=== PATIENT | female | born 1970 | race African-American/Black ===

== ENCOUNTER 2018-05-16 13:03 | Emergency (ER) | payer MEDICAID ==
--- NOTE | 2018-05-16 13:22 | ED Physician Documentation ---
PD HPI URI - Stated complaint Stated Complaint: BODYACHE/THROAT PX - Chief complaint Chief Complaint: Heent - History obtained from History obtained from: Patient - History of Present Illness Timing - onset: How many days ago (2) Timing details: Gradual onset Severity Comments: moderate Associated symptoms: Fever, Chills, Nasal congestion, Rhinorrhea, Sore throat, Dry cough Contributing factors: No: Travel, Immunocompromised Improves by: Nothing Worsened by: No: Activity, Breathing, Position Similar symptoms before: No diagnosis PD PAST MEDICAL HISTORY - Present Medications Home Medications: Ambulatory Orders Medication Instructions Recorded Confirmed Benzonatate [Tessalon Perle] 100 - 200 mg PO TID PRN #30 capsule 05/16/18 Naproxen 500 mg PO BID PRN #60 tablet 05/16/18 - Allergies Allergies/Adverse Reactions: Allergies Allergy/AdvReac Type Severity Reaction Status Date / Time No Known Drug Allergies Allergy Verified 05/16/18 13:12 PD ED PE NORMAL - General General: Alert and oriented X 3, No acute distress - HEENT HEENT: Atraumatic, PERRL, EOMI, Ears normal - Neck Neck: Supple, no meningeal sign - Cardiac Cardiac: RRR, Strong equal pulses - Respiratory Respiratory: No respiratory distress, Clear bilaterally - Derm Derm: Normal color - Extremities Extremities: No deformity - Neuro Neuro: Alert and oriented X 3, Normal speech - Psych Psych: Normal affect Results - Vitals Vitals: Vital Signs - 24 hr 05/16/18 13:10 Temperature 36.7 C Heart Rate 101 H Respiratory 16 Rate Blood Pressure 154/123 H O2 Saturation 100 Oxygen O2 Source Room air - Labs Labs: Laboratory Tests 05/16/18 13:30 Influenza A (Rapid) Negative Influenza B (Rapid) Negative PD MEDICAL DECISION MAKING - ED course ED course: The patient's workup does not reveal evidence of influenza and the patient's symptoms are consistent with a viral etiology. Clinically the patient has no wheezing on examination or findings to suggest pneumonia, acute otitis media or strep pharyngitis. Presently the patient appears appropriate for discharge and ongoing outpatient management. I discussed with the patient warning signs and recommended returning to the emergency department immediately for any worsening or any concerns Departure - Departure Disposition: 01 Home, Self Care Clinical Impression: Viral URI with cough Condition: Good Instructions: ED URI Viral Prescriptions: Benzonatate [Tessalon Perle] 100 - 200 mg PO TID PRN #30 capsule PRN Reason: Cough Naproxen 500 mg PO BID PRN #60 tablet PRN Reason: Pain Comments: Please follow-up with primary care Please return to the emergency department for worsening symptoms or any concerns
[2018-05-16] MEDS ORDERED: BENZONATATE 100 MG CAPSULE PO STA (14:04)
[2018-05-16] MEDS ORDERED: NAPROXEN 250 MG TABLET PO STA (14:04)
[2018-05-16 14:21] VITALS: BP 152/98
== END 2018-05-16 14:22 | disposition home or self-care (01) ==
LOC: ED 13:03
DX: J06.9 Acute upper respiratory infection, unspecified (principal)
CPT/HCPCS: 87275; 87276; 99283; A9270

== ENCOUNTER 2018-05-23 08:41 | Outpatient (CLI) | payer MEDICAID ==
[2018-05-23 14:28] LABS: BASOPHILS % (AUTO) 0.6 %; EOSINOPHILS # (AUTO) 0.2 10^3/uL (0.0-0.7); HGB - HEMOGLOBIN 9.5 g/dL (12.0-16.0); LYMPHOCYTES # (AUTO) 4.5 10^3/uL (1.5-3.5); LYMPHOCYTES % (AUTO) 59.1 %; MEAN CORPUSCULAR HEMOGLOBIN 21.4 pg (27.0-31.0); MEAN CORPUSCULAR HGB CONC 31.4 g/dL (32.0-36.0); MEAN CORPUSCULAR VOLUME 67.9 fL (81.0-99.0); MEAN PLATELET VOLUME 8.7 fL (7.9-10.8); MONOCYTES # (AUTO) 0.5 10^3/uL (0.0-1.0); MONOCYTES % (AUTO) 5.9 %; NEUTROPHILS # (AUTO) 2.5 10^3/uL (1.5-6.6); NEUTROPHILS % (AUTO) 32.4 %; PLT - PLATELET COUNT 283 10^3/uL (130-450); RED BLOOD COUNT 4.44 10^6/uL (4.20-5.40); RED CELL DISTRIBUTION WIDTH 23.3 % (12.0-15.0); WHITE BLOOD COUNT 7.7 x10^3/uL (4.8-10.8)
[2018-05-23 15:52] LABS: ALBUMIN 4.4 g/dL (3.2-5.5); ALBUMIN/GLOBULIN RATIO 1.3 (1.0-2.2); ALKALINE PHOSPHATASE 53 IU/L (42-121); ALT ALANINE AMINOTRANSFERASE 12 IU/L (10-60); AST ASPARTATE AMINOTRANSFERASE 17 IU/L (10-42); BILIRUBIN,TOTAL 0.2 mg/dL (0.2-1.0); BUN - BLOOD UREA NITROGEN 15 mg/dL (6-20); CALCIUM 9.2 mg/dL (8.5-10.3); CARBON DIOXIDE - CO2 24 mmol/L (21-32); CHLORIDE 105 mmol/L (101-111); CHOL/HDL RATIO 5.5 (<4.4); CHOLESTEROL 204 mg/dL; CREATININE 0.6 mg/dL (0.4-1.0); GFR - MDRD 131 (>89); GLUCOSE 82 mg/dL (70-100); HDL CHOLESTEROL 37 mg/dL; LDL CHOLESTEROL,CALCULATED 130 mg/dL; LDL/HDL RATIO 3.5 (<4.4); SODIUM 137 mmol/L (135-145); TOTAL PROTEIN 7.9 g/dL (6.7-8.2); VLDL CHOLESTEROL 37 mg/dL
[2018-05-23 16:03] LABS: DIFFERENTIAL COMMENT MANUAL=AUTO DIFF
[2018-05-23 20:20] LABS: HB2 TOTAL 9.8 g/dL; HEMOGLOBIN A1C 0.37 g/dL; HEMOGLOBIN A1C % 5.6 % (4.6-6.2)
[2018-05-24 13:07] LABS: HEPATITIS B SURFACE ANTIGEN NON-REACTIVE (NON-REACTIVE); HEPATITIS C ANTIBODY NON-REACTIVE (NON-REACTIVE)
[2018-05-24 13:37] LABS: HIV AG/AB 4TH GEN NON-REACTIVE (NON-REACTIVE)
== END 2018-05-23 23:59 | disposition home or self-care (01) ==
LOC: LAB.N 08:41
PROVIDERS: ATTEND Registered Nurse
DX: Z00.00 Encounter for general adult medical examination without abnormal findings (principal); I10 Essential (primary) hypertension; Z91.89 Other specified personal risk factors, not elsewhere classified
CPT/HCPCS: 36415; 80053; 80061; 81599; 83036; 83721; 84443; 85025; 86695; 86696; 86803; 87340; 87389

== ENCOUNTER 2018-05-28 08:00 | Outpatient (CLI) | payer MEDICAID | END 2018-05-28 23:59 | disposition home or self-care (01) | LOC: LAB.R 08:00 | PROVIDERS: ATTEND Registered Nurse | DX: Z00.00 Encounter for general adult medical examination without abnormal findings (principal); I10 Essential (primary) hypertension | CPT/HCPCS: 82570; 84156 ==

== ENCOUNTER 2018-06-23 15:35 | Emergency (ER) | payer MEDICAID ==
--- NOTE | 2018-06-23 15:47 | ED Physician Documentation ---
PD HPI SKIN - Stated complaint Stated Complaint: BREAST PX - Chief complaint Chief Complaint: General - History obtained from History obtained from: Patient - History of Present Illness Timing - onset: How many days ago (4) Timing - duration: Days (4) Timing - details: Gradual onset Location: Other (right medial breast) Quality / character: Painful, Discolored (some redness), Swelling (she feels a firm lump in the area) Associated symptoms: No: Fever, Myalgias, N/V/D Contributing factors: Other (She had been carrying heavy boxes at work few days prior to the onset, holding them against her breast, but did not notice direct impact injury.) Review of Systems Constitutional: denies: Fever, Chills, Myalgias GI: denies: Nausea, Vomiting Skin: denies: Rash, Lesions PD PAST MEDICAL HISTORY - Past Medical History Cardiovascular: None Respiratory: None Neuro: None Endocrine/Autoimmune: None GI: None 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 HEENT: None Psych: None Musculoskeletal: None Derm: None - Past Surgical History Past Surgical History: No - Present Medications Home Medications: Ambulatory Orders Medication Instructions Recorded Confirmed Benzonatate [Tessalon Perle] 100 - 200 mg PO TID PRN #30 capsule 05/16/18 Naproxen 500 mg PO BID PRN #60 tablet 05/16/18 Doxycycline Hyclate 100 mg PO BID #20 capsule 06/23/18 Naproxen 375 mg PO BID #20 tablet 06/23/18 - Allergies Allergies/Adverse Reactions: Allergies Allergy/AdvReac Type Severity Reaction Status Date / Time No Known Drug Allergies Allergy Verified 06/23/18 15:41 - Social History Does the pt smoke?: Yes Smoking Status: Current every day smoker Does the pt drink ETOH?: Yes Does the pt have substance abuse?: Yes - Immunizations Immunizations are current?: Yes - POLST Patient has POLST: No PD ED PE NORMAL - Vitals Vital signs reviewed: Yes - General General: Alert and oriented X 3, No acute distress, Well developed/nourished - Respiratory Respiratory: Other (right breast with firmness, tenderness and mild redness at 3 o'clock position to the nipple. No fluctuance felt. Bedside U/S showed mainly inflammation of the tissue, with small fluid collection about 3-4 mm just medial to the nipple. No sores nor discharge. ) Results - Vitals Vitals: Vital Signs - 24 hr 06/23/18 15:38 Temperature 37.3 C Heart Rate 83 Respiratory 18 Rate Blood Pressure 142/79 H O2 Saturation 100 Oxygen O2 Source Room air PD MEDICAL DECISION MAKING - ED course Complexity details: considered differential (bedside U/S showed mostly inflammation within glandular tissue, with a small fluid collection 3 o'clock to the nipple that was only about 3-4 mm size. It did not look big enough to need draining. ), d/w patient Departure - Departure Disposition: Home, Self Care Clinical Impression: Mastitis Condition: Stable Record reviewed to determine appropriate education?: Yes Instructions: ED Breast Infec Prescriptions: Doxycycline Hyclate 100 mg PO BID #20 capsule Naproxen 375 mg PO BID #20 tablet Comments: This sounds like in the infection of the glandular tissue of the breast. There is mostly inflammation on the ultrasound with a very small collection of fluid that does not look big enough to need draining at this time. We will start some antibiotics and anti-inflammatories. Also do some warm towels to the area periodically to improve blood flow to the area. Recheck if not improving over the next 2-3 days and return if significantly worsening over that time. After the tenderness and most swelling is down, there may still be somewhat of a lump feeling for another 2 or 3 weeks before it softens. Recheck if it does not fully resolve over several weeks. Forms: Activity restrictions
[2018-06-23] MEDS ORDERED: DOXYCYCLINE 100 MG TABLET PO STA (16:08)
[2018-06-23] MEDS ORDERED: IBUPROFEN 600 MG TABLET PO STA (16:08)
[2018-06-23 16:30] VITALS: BP 138/95
== END 2018-06-23 16:27 | disposition home or self-care (01) ==
LOC: ED 15:35
DX: N61.0 Mastitis without abscess (principal); F17.200 Nicotine dependence, unspecified, uncomplicated
CPT/HCPCS: 99283; A9270

== ENCOUNTER 2018-06-26 20:34 | Emergency (ER) | payer MEDICAID ==
--- NOTE | 2018-06-26 20:44 | ED Physician Documentation ---
PD HPI SKIN - Stated complaint Stated Complaint: RT BREAST PAIN - History obtained from History obtained from: Patient - History of Present Illness Timing - onset: How many weeks ago (1) Timing - duration: Weeks (1) Timing - details: Gradual onset, Still present, Constant Pain level now: 9 Location: Chest (right breast) Quality / character: Painful, Raised, Swelling Associated symptoms: No: Fever Recently seen: Emergency Dept - Additional information Additional information: T+R 3 days ago for right breast abscess, has been taking doxycycline as prescribed but returns due to steadily worsening symptoms (increasing pain, swelling). Symptoms started 1 week ago. 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 HEENT: None Psych: None Musculoskeletal: None Derm: None - Past Surgical History Past Surgical History: No - Present Medications Home Medications: Ambulatory Orders Medication Instructions Recorded Confirmed Benzonatate [Tessalon Perle] 100 - 200 mg PO TID PRN #30 capsule 05/16/18 Naproxen 500 mg PO BID PRN #60 tablet 05/16/18 Doxycycline Hyclate 100 mg PO BID #20 capsule 06/23/18 Naproxen 375 mg PO BID #20 tablet 06/23/18 Hydrocodone/Acetaminophen 1 - 2 each PO Q6H PRN #14 tablet 06/26/18 [Hydrocodon-Acetaminophen 5-325] Metronidazole [Flagyl] 500 mg PO TID #29 tablet 06/26/18 - Allergies Allergies/Adverse Reactions: Allergies Allergy/AdvReac Type Severity Reaction Status Date / Time No Known Drug Allergies Allergy Verified 06/26/18 20:47 - Social History Does the pt smoke?: Yes Smoking Status: Current every day smoker Does the pt drink ETOH?: Yes Does the pt have substance abuse?: Yes - Immunizations Immunizations are current?: Yes - POLST Patient has POLST: No PD ED PE NORMAL - Vitals Vital signs reviewed: Yes - General General: Alert and oriented X 3, No acute distress, Well developed/nourished PD ED PE EXPANDED - Derm Derm: Abscess (2.5 cm diameter abscess immediately adjacent to right nipple (medial to the nipple); the lesion is exquisitely tender, raised, erythematous with sharp margins and fluctuance. no nipple discharge) Results - Vitals Vitals: Vital Signs - 24 hr 06/26/18 06/26/18 20:44 22:04 Temperature 36.8 C 36.5 C Heart Rate 71 70 Respiratory 16 14 Rate Blood Pressure 165/58 H 146/99 H O2 Saturation 100 100 Oxygen O2 Source Room air Procedures - Abscess I&D (location) Breast right Preparation: Chlorhexadine, Lidocaine 1% (buffered) Incision: Incised with scalpel, Purulent drainage, Irrigated, Packed, Culture obtained Other: Pt tolerated well, Dressing applied, Antibiotic prescribed PD MEDICAL DECISION MAKING - ED course Complexity details: reviewed old records, considered differential, d/w patient ED course: Case d/w Dr. Perlita Bowling, agrees with I+D in ED, antibiotics to include anaerobic coverage, can f/u outpatient setting Departure - Departure Disposition: 01 Home, Self Care Clinical Impression: Mastitis Condition: Good Instructions: ED Breast Infec Follow-Up: Steve Bowling MD [Provider Admit Priv/Credential] - (Call in the morning to arrange for a follow-up appointment within the next 3-5 days) Prescriptions: Hydrocodone/Acetaminophen [Hydrocodon-Acetaminophen 5-325] 1 - 2 each PO Q6H PRN #14 tablet PRN Reason: pain Metronidazole [Flagyl] 500 mg PO TID #29 tablet Comments: Continue the antibiotic you are already on (doxycycline) but start also taking the metronidazole (prescribed tonight). Forms: Activity restrictions
[2018-06-26] MEDS ORDERED: BUFFERED LIDOCAINE 10 ML SYRINGE SUBQ STA (21:04)
[2018-06-26] MEDS ORDERED: HYDROcod/ACET 5/325 Prepack 4 PO STA (21:49)
[2018-06-26] MEDS ORDERED: metroNIDAZOLE 250 MG TABLET PO STA (21:49)
[2018-06-26 22:05] VITALS: BP 146/99
== END 2018-06-26 22:10 | disposition home or self-care (01) ==
LOC: ED 20:34
DX: N61.0 Mastitis without abscess (principal); F17.200 Nicotine dependence, unspecified, uncomplicated
CPT/HCPCS: 10060; 87070; 87205; 99283; A9270

== ENCOUNTER 2019-03-07 12:34 | Outpatient (CLI) | payer MEDICAID ==
[2019-03-07 19:16] LABS: BASOPHILS # (AUTO) 0.1 10^3/uL (0.0-0.1); BASOPHILS % (AUTO) 0.7 %; EOSINOPHILS # (AUTO) 0.2 10^3/uL (0.0-0.7); HGB - HEMOGLOBIN 8.8 g/dL (12.0-16.0); LYMPHOCYTES # (AUTO) 4.3 10^3/uL (1.5-3.5); LYMPHOCYTES % (AUTO) 56.2 %; MEAN CORPUSCULAR HEMOGLOBIN 21.5 pg (27.0-31.0); MEAN CORPUSCULAR HGB CONC 29.2 g/dL (32.0-36.0); MEAN CORPUSCULAR VOLUME 73.6 fL (81.0-99.0); MEAN PLATELET VOLUME 10.1 fL (7.9-10.8); MONOCYTES # (AUTO) 0.7 10^3/uL (0.0-1.0); MONOCYTES % (AUTO) 8.6 %; NEUTROPHILS # (AUTO) 2.5 10^3/uL (1.5-6.6); NEUTROPHILS % (AUTO) 32.2 %; PLT - PLATELET COUNT 398 10^3/uL (130-450); RED BLOOD COUNT 4.09 10^6/uL (4.20-5.40); RED CELL DISTRIBUTION WIDTH 22.3 % (12.0-15.0); WHITE BLOOD COUNT 7.6 x10^3/uL (4.8-10.8)
[2019-03-07 20:10] LABS: PLATELET ESTIMATE, MANUAL NORMAL (130-450,000) (NORMAL); PLATELET MORPHOLOGY NORMAL APPEARANCE (NORMAL)
== END 2019-03-07 23:59 | disposition home or self-care (01) ==
LOC: LAB.N 12:34
PROVIDERS: ATTEND Nurse Practitioner Gerontology
DX: E05.90 Thyrotoxicosis, unspecified without thyrotoxic crisis or storm (principal); D64.9 Anemia, unspecified
CPT/HCPCS: 36415; 84443; 85025

== ENCOUNTER 2019-03-21 11:51 | Outpatient (CLI) | payer MEDICAID ==
[2019-03-21 12:23] LABS: MEAN CORPUSCULAR HEMOGLOBIN 20.8 pg (27.0-31.0); MEAN CORPUSCULAR HGB CONC 29.2 g/dL (32.0-36.0); MEAN CORPUSCULAR VOLUME 71.1 fL (81.0-99.0); RED BLOOD COUNT 4.33 10^6/uL (4.20-5.40); RED CELL DISTRIBUTION WIDTH 21.3 % (12.0-15.0); WHITE BLOOD COUNT 7.6 x10^3/uL (4.8-10.8)
[2019-03-21 12:48] LABS: % IRON SATURATION 5 % (20-50); IRON 21 ug/dL (28-170); TOTAL IRON BINDING CAPACITY 452 ug/dL (250-450); TRANSFERRIN 323 mg/dL (192-382)
[2019-03-21 12:55] LABS: THYROID STIMULATING HORMONE 0.36 uIU/mL (0.34-5.60)
[2019-03-21 13:00] LABS: FERRITIN 4.4 ng/mL (11.0-306.8)
== END 2019-03-21 11:52 | disposition home or self-care (01) ==
LOC: LAB 11:51
PROVIDERS: ATTEND Obstetrics & Gynecology
DX: N93.9 Abnormal uterine and vaginal bleeding, unspecified (principal); N87.1 Moderate cervical dysplasia
CPT/HCPCS: 36415; 82728; 83540; 84443; 84466; 85027

== ENCOUNTER 2019-03-28 10:57 | Outpatient (CLI) | payer MEDICAID ==
--- NOTE | 2019-03-31 08:32 | Mammography Report ---
Reason: ROUTINE MAMMO Procedure Date: 03/28/2019 Accession Number: [id number] / [id number] Procedure: MGN - Screening Mammo Dig Bilat CPT Code: Final Report FULL RESULT: EXAM: Screening Mammo Dig Bilat DATE: 03/28/2019 11:38 AM CLINICAL HISTORY: The patient is an asymptomatic 48-year-old female. No personal nor family history of breast cancer. TECHNIQUE: (B) - Bilateral CC and MLO views were obtained. COMPARISON: None. Baseline. PARENCHYMAL PATTERN: (A) - The breasts demonstrate scattered fibroglandular densities bilaterally. FINDINGS: RIGHT BREAST: There are no suspicious masses, calcifications, or areas of distortion. LEFT BREAST: There are focal asymmetries in the posterior-central and mid-lateral positions; reference CC view only. These likely represent overlapping glandular tissue. Recommend targeted diagnostic evaluation given baseline study. IMPRESSION: RIGHT BREAST: Negative examination. BI-RADS category 1. LEFT BREAST: Incomplete examination. BI-RADS Category 0 RECOMMENDATION: Recommend targeted diagnostic mammographic views and ultrasound, if indicated. BI-RADS CATEGORY: (0) - Incomplete Examination - need additional evaluation. STANDARD QUALIFYING STATEMENTS: 1. This examination was not reviewed with the aid of Computer-Aided Detection (CAD). 2. A negative or benign imaging report should not preclude biopsy if clinically suspicious findings are present. 3. Dense breasts may obscure an underlying neoplasm.
== END 2019-03-28 10:58 | disposition home or self-care (01) ==
LOC: DI.N 10:57
PROVIDERS: ATTEND Nurse Practitioner Gerontology
DX: Z12.31 Encounter for screening mammogram for malignant neoplasm of breast (principal); R92.8 Other abnormal and inconclusive findings on diagnostic imaging of breast
CPT/HCPCS: 77067

== ENCOUNTER 2019-03-30 16:39 | Outpatient (CLI) | payer MEDICAID ==
--- NOTE | 2019-03-30 22:53 | Ultrasound Report ---
Reason: ABN UTERINE BLEEDING Procedure Date: 03/30/2019 Accession Number: [id number] / [id number] Procedure: US - Pelvic w/Transvaginal CPT Code: Final Report FULL RESULT: EXAM: PELVIC ULTRASOUND EXAM DATE: 03/30/2019 06:14 PM. CLINICAL HISTORY: ABN UTERINE BLEEDING. COMPARISON: None. TECHNIQUE: Realtime transabdominal pelvic scan performed to identify the uterus and adnexa and as an overview of other pelvic structures, followed by transvaginal scan to provide greater detail of the uterus and adnexa, with static image documentation. FINDINGS: Uterus: 9.5 x 5.7 x 4.5 cm, volume 127 cc. Anteverted position. Normal overall size and echotexture. Masses: None. Endometrium: 1 mm. Atrophic endometrium. Cervix: Unremarkable. Right Ovary: 2.0 x 1.7 x 1.1 cm, volume 2 cc. Normal echotexture and blood flow. Left Ovary: 2.2 x 1.0 x 0.7 cm, volume 1 cc. Normal echotexture and blood flow. Free Fluid: None. Other: None. IMPRESSION: Atrophic endometrium. RADIA
== END 2019-03-30 16:40 | disposition home or self-care (01) ==
LOC: DI 16:39
PROVIDERS: ATTEND Obstetrics & Gynecology
DX: N85.8 Other specified noninflammatory disorders of uterus (principal)
CPT/HCPCS: 76830; 76856

== ENCOUNTER 2019-04-24 10:36 | Outpatient (CLI) | payer MEDICAID ==
--- NOTE | 2019-04-24 13:56 | Mammography Report ---
Reason: ABNORMAL MAMMOGRAM Procedure Date: 04/24/2019 Accession Number: [id number] / [id number] Procedure: CHANTELLE - Diag Special Views Dig LT CPT Code: Final Report FULL RESULT: EXAM: Diag Special Views Dig LT DATE: 04/24/2019 11:14 AM CLINICAL HISTORY: Diagnostic examination. The patient is recalled from screening for focal asymmetry in the left breast. TECHNIQUE: (L) - Left CC, laterally exaggerated CC and ML images obtained. COMPARISON: 03/28/2019. PARENCHYMAL PATTERN: (A) - The breast(s) demonstrate(s) scattered fibroglandular densities. FINDINGS: The previously seen focal asymmetries dissipate on diagnostic views with 3-D mammography confirming absence of underlying mass. There are no suspicious masses, calcifications, or areas of distortion. IMPRESSION: Negative examination. BI-RADS category 1. RECOMMENDATION: (ANNUAL) - Recommend routine annual screening mammography. BI-RADS CATEGORY: (1) - Negative. STANDARD QUALIFYING STATEMENTS: 1. This examination was not reviewed with the aid of Computer-Aided Detection (CAD). 2. A negative or benign imaging report should not preclude biopsy if clinically suspicious findings are present. 3. Dense breasts may obscure an underlying neoplasm. 4. This examination was reviewed with the aid of 3D breast imaging (tomosynthesis).
== END 2019-04-24 10:37 | disposition home or self-care (01) ==
LOC: DI 10:36
PROVIDERS: ATTEND Nurse Practitioner Gerontology
DX: R92.8 Other abnormal and inconclusive findings on diagnostic imaging of breast (principal)

== ENCOUNTER 2019-05-26 09:52 | Outpatient (CLI) | payer MEDICAID ==
[2019-05-26 10:54] LABS: BASOPHILS % (AUTO) 0.5 %; EOSINOPHILS # (AUTO) 0.2 10^3/uL (0.0-0.7); EOSINOPHILS % (AUTO) 2.7 %; LYMPHOCYTES # (AUTO) 3.3 10^3/uL (1.5-3.5); LYMPHOCYTES % (AUTO) 41.2 %; MEAN CORPUSCULAR HEMOGLOBIN 21.7 pg (27.0-31.0); MEAN CORPUSCULAR HGB CONC 29.8 g/dL (32.0-36.0); MEAN PLATELET VOLUME 9.5 fL (7.9-10.8); MONOCYTES % (AUTO) 12.1 %; NEUTROPHILS # (AUTO) 3.5 10^3/uL (1.5-6.6); NEUTROPHILS % (AUTO) 43.3 %; PLT - PLATELET COUNT 513 10^3/uL (130-450); RED CELL DISTRIBUTION WIDTH 23.9 % (12.0-15.0)
== END 2019-05-26 09:53 | disposition home or self-care (01) ==
LOC: LAB 09:52
PROVIDERS: ATTEND Obstetrics & Gynecology
DX: Z01.812 Encounter for preprocedural laboratory examination (principal); N87.1 Moderate cervical dysplasia; N93.9 Abnormal uterine and vaginal bleeding, unspecified
CPT/HCPCS: 36415; 85025

== ENCOUNTER 2019-05-28 11:26 | Day surgery (SDC) | payer MEDICAID ==
--- NOTE | 2019-05-26 10:58 | CONSULTATION NOTE ---
Consultation Report: Evaluated patient in the preop clinic. She has a 25 year pack history of smoking. Denies asthma or inhaler use. Had recent episode of otitis media and was treated. She has had some borderline episodes of hypertension and was prescribed amlodipine. She states she is fearful of taking blood pressure medications and has not had the prescription filled. Blood pressure was 159/93 in preop today. Lungs are CTA. No anesthesia concerns.
[~2019-05-28 11:26] MED LIST: ACETAMINOPHEN 1,000 MG/100 ML 100 ML IV ONE; CELECOXIB 100 MG CAPSULE PO ONE; GABAPENTIN 400 MG CAPSULE ONE
[2019-05-28] MEDS ORDERED: LACTATED RINGERS 1,000 ML IV ONE ×2 (11:29→15:42)
[2019-05-28 11:46] LABS: HCG UR QUAL NEGATIVE
--- NOTE | 2019-05-28 13:05 | ANESTHESIA ---
Pre-Anesthesia VS, & Labs - Diagnosis Cervical dysplasia - Procedure D and C, myosure hysteroscopy Vital Signs: Temp Pulse Resp BP Pulse Ox 36.6 C 63 16 173/98 H 100 05/28/19 11:36 05/28/19 11:36 05/28/19 11:36 05/28/19 11:36 05/28/19 11:36 Height 5 ft 7 in Weight (kg) 83 kg Body Mass Index 28.1 - NPO >8 hours - Is Patient ?: No - Lab Results Current Lab Results: Laboratory Tests 05/28/19 11:49: POC Whole Bld Glucose 79 Lab results reviewed: Yes Home Medications and Allergies Home Medications: Ambulatory Orders Ferrous Sulfate 325 mg PO DAILY 05/26/19 Montelukast [Singulair] 10 mg PO DAILY 05/26/19 Ferrous Sulfate 325 mg PO DAILY 05/26/19 Montelukast [Singulair] 10 mg PO DAILY 05/26/19 Allergies/Adverse Reactions: Allergies Allergy/AdvReac Type Severity Reaction Status Date / Time No Known Drug Allergies Allergy Verified 06/26/18 20:47 Anes History & Medical History - Anesthetic History Anesthesia Complications: reports: No previous complications Family history of Anesthesia Complications: Denies Family history of Malignant Hyperthermia: Denies - Medical History Cardiovascular: reports: None Pulmonary: reports: Other Gastrointestinal: reports: None Urinary: reports: None Neuro: reports: None Musculoskeletal: reports: None Endocrine/Autoimmune: reports: None Blood Disorders: reports: None Skin: reports: None Smoking Status: Current every day smoker Psychosocial: reports: No issues indicated - Surgical History Gynecologic: Tubal ligation Exam General: Alert, Oriented x3 Dental: WNL Mouth Opening: Greater than 4 Fingerbreadths Neck Mobility: Normal Mallampati classification: II Thyromental Distance: greater than 6 cm Respiratory: Lungs clear Cardiovascular: Regular rate Mental/Cognitive Status: Alert/Oriented X3 Cognitive Status: Within normal limits Plan Anesthesia Type: General Consent for Procedure(s) Verified and Reviewed: Yes Code Status: Attempt Resuscitation ASA classification: 2-Mild systemic disease Is this case an emergency?: No
[2019-05-28] MEDS ORDERED: LIDOCAINE MPF 2%-EPI 1:200000 20 ML VIAL ONE (13:57)
[2019-05-28] MEDS ORDERED: GLYCOPYRROLATE 1 MG/5 ML VIAL IVP ONE (14:36)
[2019-05-28] MEDS ORDERED: LIDOCAINE-MPF 2% 5 ML VIAL IM ONE (14:36)
[2019-05-28] MEDS ORDERED: PHENYLEPHRINE 10 MG/ML VIAL IV ONE (14:36)
[2019-05-28] MEDS ORDERED: KETOROLAC 30 MG/ML VIAL IVP ONE (14:36)
[2019-05-28] MEDS ORDERED: ONDANSETRON 4 MG/2 ML VIAL IVP ONE (14:36)
[2019-05-28] MEDS ORDERED: DEXAMETHASONE 4 MG/ML VIAL IVP ONE (14:36)
[2019-05-28] MEDS ORDERED: PROPOFOL 200 MG/20 ML VIAL IVP ONE (14:36)
[2019-05-28] MEDS ORDERED: FERRIC SUBSULFATE 8 ML SOLUTION (FOR OR) TOP ONE (15:00)
[2019-05-28] MEDS ORDERED: LIDOCAINE 2%-EPI 1:100000 20 ML MDV SUBQ ONE (15:00)
[2019-05-28] MEDS ORDERED: oxyCODONE 5 MG TABLET PO PRN (16:02)
[2019-05-28] MEDS: fentaNYL 100 MCG/2 ML VIAL ONE ×2 (16:04→16:09)
[2019-05-28] MEDS: HYDROmorphone 1 MG/ML CARPUJECT ONE ×2 (16:17→16:22)
--- NOTE | 2019-05-28 16:20 | OPERATIVE REPORT ---
Operative Report - General Procedure Date: 05/28/19 Planned Procedure: Loop electrical excision procedure (LEEP) and hysteroscopy D&C Pre-Op Diagnosis: Dysfunctional uterine bleeding and EMILI-2 Procedure Performed: LEEP and hysteroscopy D&C Post Op Diagnosis: same - Procedure Note Primary Surgeon: Berna Puente MD Anesthesia Provider: Anish Porter CRNA Pathology: Cervical specimens: 1) Anterior ectocervical 2)Posterior ectocervical 3) Endocervical biopsy 4) Endocervical curettage Endometrial curettings IV Fluids (mL): 300 Estimated Blood Loss (mL): 5 Urine Output (mL): 150 Indications: Patient is a 48 yo here with DUB and cervical dysplasia. She has been having heavy bleeding, passing clots the size of plums. She also has had a ASCUS-H pap smear followed with a colposcopy showing EMILI-2. She did no t tolerate her colposcopy and it was recommended by Dr. Stephens that she undergo LEEP under anesthesia. Menses lasting up to 8 days, uses an overnight pad for the first 3-4 days and has to change it q2h. Passes blood clots the size of plums. She had a pelvic us that showed a normal uterus. She would like to proceed with hysterectomy. She is aware that we would need a biopsy prior to completing the US. She is unable to tolerate and EMB in clinic. Plan was to perform hysteroscopy D&C at time of the LEEP. Findings: Normal uterine cavity and bilateral tubal ostia. Complications: None - Other Other Information/Narrative: Risks benefits and alternatives to the procedure were reviewed. Consent was again confirmed. Patient was taken to the operating room where she underwent general anesthesia. She was positioned in dorsolithotomy position with legs resting in yellowfin stirrups. The patient was prepped and draped in the usual sterile fashion and placed in the dorsal lithotomy position. A grounding pad was placed on the patients right anterior thigh. A urine test was negative. A time out was performed, correctly identifying the patient and the procedure. At this time, a bivalved nonconductive speculum was placed in the vagina. Iodine solution was painted along the entire cervix and vaginal wall. Areas of non- uptake were noted to be around the entire squamocolumnarjunction. Paracervical block was administered using a total of 20 cc of 1% lidocaine with epinephrine was injected at the 4:00 and 8:00 positions lateral to the portio of the cervix. A large 25x10 mm loop electrode was used to remove the anterior portion of the cervix and a separate posterior specimen was excised and sent to pathology. A 20x10 mm loop electrode was used to obtain a top hat for excision of the endocervix. An endocervical curettage was performed and specimen and sent to pathology. The bed of the excised cervical tissue along the cervix was cauterized using the rollerball. Good hemostasis was noted. All instruments were removed from vagina at this point. The patient was then draped and prepped for hysteroscopy. She was prepped and draped in the usual sterile fashion. Preoperative antibiotics were not indicated. Preoperative checklist was performed. Exam under anesthesia was performed. Speculum was placed in the vagina and the cervix was visualized. Single-tooth tenaculum was placed at the anterior cervical lip. The cervical os was serially dilated with Hegar dilators to accommodate the caliber of the diagnostic hysteroscope. Uterus sounded to 7 cm. The hysteroscope was inserted and findings were noted as above. Hysteroscope was removed. Sharp curettage D&C was performed with sharp curettage. All instruments were removed from the uterus. Tenaculum was removed. Tenaculum sites were noted to be hemostatic. Monsels was applied to the cervical bed to additional hemostasis support. All instruments were removed from the vagina. Procedure was well-tolerated without complication. Fluid deficit:0
[2019-05-28] MEDS ORDERED: oxyCODONE 5 MG TABLET ONE (16:53)
[2019-05-28 16:55] VITALS: BP 139/97
== END 2019-05-28 11:27 | disposition home or self-care (01) ==
LOC: SDS 11:26
PROVIDERS: ATTEND Obstetrics & Gynecology
PROC: 0UJD8ZZ Inspection of Uterus and Cervix, Via Natural or Artificial Opening Endoscopic (ICD-10-PCS; 2019-05-28)
PROC: 0UBC7ZZ Excision of Cervix, Via Natural or Artificial Opening (ICD-10-PCS; principal; 2019-05-28 14:15)
PROC: 0UDB7ZZ Extraction of Endometrium, Via Natural or Artificial Opening (ICD-10-PCS; 2019-05-28 14:15)
DX: N93.8 Other specified abnormal uterine and vaginal bleeding (principal); N87.1 Moderate cervical dysplasia; F17.210 Nicotine dependence, cigarettes, uncomplicated; I10 Essential (primary) hypertension
CPT/HCPCS: 57522; 58558; 81025; A9270; J0131; J1170; J7120

== ENCOUNTER 2020-03-26 13:33 | Emergency (ER) | payer MEDICAID ==
[2020-03-26] MEDS ORDERED: MORPHINE 2 MG/ML CARPUJECT IVP STA ×2 (13:47→16:27)
--- NOTE | 2020-03-26 13:48 | ED Physician Documentation ---
PD HPI ABD PAIN - Stated complaint Stated Complaint: ABD PAIN - Chief complaint Chief Complaint: Abd Pain - History obtained from History obtained from: Patient - Additional information Additional information: Previously healthy 49-year-old woman has had about 3 days of worsening right lower quadrant pain. Is not associated with fevers, chills, trouble with bowel movements. She never had it before. It is generally worsening and today was intolerable. No history of abdominal surgeries. Review of Systems Ten Systems: 10 systems reviewed and negative Constitutional: denies: Fever, Chills Throat: reports: Reviewed and negative Cardiac: reports: Reviewed and negative Respiratory: reports: Reviewed and negative PD PAST MEDICAL HISTORY - Past Medical History Cardiovascular: None Respiratory: None Neuro: None Endocrine/Autoimmune: None GI: None DIRECTOR VETERINARY: None : None HEENT: None Psych: None Musculoskeletal: None Derm: None - Past Surgical History Past Surgical History: No - Present Medications Home Medications: Ambulatory Orders Medication Instructions Recorded Confirmed Ciprofloxacin HCl [Cipro] 500 mg PO BID #20 tablet 03/26/20 HYDROcod/ACETAM 5/325 [[place] 5/325] 1 - 2 tab PO Q6H PRN #15 tablet 03/26/20 metroNIDAZOLE [Flagyl] 500 mg PO TID #30 tablet 03/26/20 - Allergies Allergies/Adverse Reactions: Allergies Allergy/AdvReac Type Severity Reaction Status Date / Time No Known Drug Allergies Allergy Verified 03/26/20 13:35 - Social History Does the pt smoke?: Yes Smoking Status: Current every day smoker Does the pt drink ETOH?: Yes Does the pt have substance abuse?: Yes - Immunizations Immunizations are current?: Yes - POLST Patient has POLST: No PD ED PE NORMAL - Vitals Vital signs reviewed: Yes - General General: Alert and oriented X 3, Other (uncomfortable) - HEENT HEENT: PERRL, EOMI - Neck Neck: Supple, no meningeal sign, No bony TTP - Cardiac Cardiac: RRR, No murmur - Respiratory Respiratory: No respiratory distress, Clear bilaterally - Abdomen Abdomen: Soft, Other (++TTP RLQ, neg Rovsings) - Back Back: No CVA TTP, No spinal TTP - Derm Derm: Normal color, Warm and dry - Extremities Extremities: No edema, No calf tenderness / cord - Neuro Neuro: Alert and oriented X 3, Normal speech Results - Vitals Vitals: Vital Signs - 24 hr 03/26/20 13:36 Temperature 36.6 C Heart Rate 78 Respiratory 18 Rate Blood Pressure 134/76 H O2 Saturation 99 Oxygen O2 Source Room air - Labs Labs: Laboratory Tests 03/26/20 03/26/20 03/26/20 13:00 13:40 13:45 WBC 14.2 H RBC 4.71 Hgb 10.4 L Hct 33.1 L MCV 70.3 L MCH 22.1 L MCHC 31.4 L RDW 23.5 H Plt Count 372 MPV 9.6 Neut # (Auto) Not Reportable Lymph # (Auto) Not Reportable [facility] # (Auto) Not Reportable Eos # (Auto) Not Reportable Baso # (Auto) Not Reportable Absolute Nucleated RBC Not Reportable Total Counted 100 Band Neuts % (Manual) 0 Abnorm Lymph % (Manual) 0 Nucleated RBC % Not Reportable Neutrophils # (Manual) 8.7 H Lymphocytes # (Manual) 4.1 H Monocytes # (Manual) 1.0 Eosinophils # (Manual) 0.3 Basophils # (Manual) 0.1 Differential Comment MANUAL DIFFERENTIAL WBC Morphology NORMAL APPEARANCE Platelet Estimate NORMAL (130-450,000) Platelet Morphology NPN RBC Morph Micro Appear 1+ MICROCYTOSIS Sodium 139 Potassium 3.3 L Chloride 104 Carbon Dioxide 26 Anion Gap 9.0 BUN 10 Creatinine 0.7 Estimated GFR (MDRD) 109 Glucose 109 H Lactic Acid Calcium 8.9 Total Bilirubin 0.3 AST 15 ALT 13 Alkaline Phosphatase 58 Total Protein 7.3 Albumin 3.8 Globulin 3.5 Albumin/Globulin Ratio 1.1 Lipase 21 L Urine Color YELLOW Urine Clarity CLEAR Urine pH 5.5 Ur Specific [place] >=1.030 H Urine Protein NEGATIVE Urine Glucose (UA) NEGATIVE Urine Ketones TRACE Urine Occult Blood NEGATIVE Urine Nitrite NEGATIVE Urine Bilirubin NEGATIVE Urine Urobilinogen 0.2 (NORMAL) Ur Leukocyte Esterase NEGATIVE Ur Microscopic Review NOT INDICATED Urine Culture Comments NOT INDICATED Urine HCG, Qual NEGATIVE 03/26/20 15:55 WBC RBC Hgb Hct MCV MCH MCHC RDW Plt Count MPV Neut # (Auto) Lymph # (Auto) [facility] # (Auto) Eos # (Auto) Baso # (Auto) Absolute Nucleated RBC Total Counted Band Neuts % (Manual) Abnorm Lymph % (Manual) Nucleated RBC % Neutrophils # (Manual) Lymphocytes # (Manual) Monocytes # (Manual) Eosinophils # (Manual) Basophils # (Manual) Differential Comment WBC Morphology Platelet Estimate Platelet Morphology RBC Morph Micro Appear Sodium Potassium Chloride Carbon Dioxide Anion Gap BUN Creatinine Estimated GFR (MDRD) Glucose Lactic Acid 1.1 Calcium Total Bilirubin AST ALT Alkaline Phosphatase Total Protein Albumin Globulin Albumin/Globulin Ratio Lipase Urine Color Urine Clarity Urine pH Ur Specific [place] Urine Protein Urine Glucose (UA) Urine Ketones Urine Occult Blood Urine Nitrite Urine Bilirubin Urine Urobilinogen Ur Leukocyte Esterase Ur Microscopic Review Urine Culture Comments Urine HCG, Qual - Rads (name of study) CT A/P Radiology: EMP read contemporaneously (Diffuse right colonic wall thickening with some mucosal edema and mucosal hyperenhancement. Findings may represent inflammatory or ischemic colitis.) PD MEDICAL DECISION MAKING - ED course ED course: 49-year-old woman with an ascending colitis causing her pain, doubt ischemic given her good response pain medication as well as the lack of a lactic acidosis. She has no ongoing symptoms such as diarrhea or weight loss to suggest inflammatory bowel disease. Departure - Departure Disposition: Home, Self Care Clinical Impression: Colitis Condition: Good Record reviewed to determine appropriate education?: Yes Instructions: ED Gastroenteritis Bacterial Prescriptions: Ciprofloxacin HCl [Cipro] 500 mg PO BID #20 tablet metroNIDAZOLE [Flagyl] 500 mg PO TID #30 tablet HYDROcod/ACETAM 5/325 [[place] 5/325] 1 - 2 tab PO Q6H PRN #15 tablet PRN Reason: Pain Comments: You were seen today for abdominal pain and on CAT scan it looks like you have an inflammation of the ascending colon. There are multiple causes potentially for this, looking at your labs, a lack of blood flow to that area is unlikely. A self-limited or bacterial infection is a possibility, for that we are starting some antibiotics. Something like Crohn's disease or ulcerative colitis is also a possibility, but that is less likely since you have not had any symptoms of weight loss or diarrhea. Return if worsening. Follow-up with your primary care physician regardless, you will need a colonoscopy after this flare is calm down in about 2 months, to evaluate for other causes of this. Do not drink or drive while taking prescription pain medication. Do not drink alcohol while taking the antibiotics, will make you quite sick.
[2020-03-26 13:54] LABS: BILIRUBIN,URINE NEGATIVE (NEGATIVE); GLUCOSE, URINE (UA) NEGATIVE (NEGATIVE); KETONES,URINE (UA) TRACE mg/dL (NEGATIVE); LEUKOCYTE ESTERASE, URINE NEGATIVE (NEGATIVE); NITRITE,URINE NEGATIVE (NEGATIVE); OCCULT BLOOD,URINE NEGATIVE (NEGATIVE); PH,URINE 5.5 PH (5.0-7.5); PROTEIN,URINE NEGATIVE (NEGATIVE); UROBILINOGEN,URINE 0.2 (NORMAL) E.U./dL (NORMAL)
[2020-03-26 13:57] LABS: CLARITY,URINE CLEAR (CLEAR); HCG UR QUAL NEGATIVE
[2020-03-26 14:06] LABS: BASOPHILS % (AUTO) 0.4 %; EOSINOPHILS % (AUTO) 2.3 %; HGB - HEMOGLOBIN 10.4 g/dL (12.0-16.0); LYMPHOCYTES % (AUTO) 29.8 %; MEAN CORPUSCULAR HEMOGLOBIN 22.1 pg (27.0-31.0); MEAN CORPUSCULAR HGB CONC 31.4 g/dL (32.0-36.0); MEAN CORPUSCULAR VOLUME 70.3 fL (81.0-99.0); MEAN PLATELET VOLUME 9.6 fL (7.9-10.8); MONOCYTES % (AUTO) 7.7 %; NEUTROPHILS % (AUTO) 59.2 %; PLT - PLATELET COUNT 372 10^3/uL (130-450); RED BLOOD COUNT 4.71 10^6/uL (4.20-5.40); RED CELL DISTRIBUTION WIDTH 23.5 % (12.0-15.0); WHITE BLOOD COUNT 14.2 x10^3/uL (4.8-10.8)
[2020-03-26 14:08] LABS: ALBUMIN 3.8 g/dL (3.2-5.5); ALBUMIN/GLOBULIN RATIO 1.1 (1.0-2.2); BILIRUBIN,TOTAL 0.3 mg/dL (0.2-1.0); CALCIUM 8.9 mg/dL (8.5-10.3); CREATININE 0.7 mg/dL (0.4-1.0); TOTAL PROTEIN 7.3 g/dL (6.7-8.2)
[2020-03-26 14:10] LABS: ABNORMAL LYMPHS % (MANUAL) 0 %; BAND NEUTROPHILS % (MANUAL) 0 %
[2020-03-26 14:37] LABS: BASOPHILS # (MANUAL) 0.1 10^3/uL (0-0.1); BASOPHILS % (MANUAL) 1 %; EOSINOPHILS # (MANUAL) 0.3 10^3/uL (0-0.7); LYMPHOCYTES # (MANUAL) 4.1 10^3/uL (1.5-3.5); LYMPHOCYTES % (MANUAL) 29 %
[2020-03-26 14:40] LABS: DIFFERENTIAL COMMENT MANUAL DIFFERENTIAL; PLATELET ESTIMATE, MANUAL NORMAL (130-450,000) (NORMAL); PLATELET MORPHOLOGY NPN (NORMAL)
[2020-03-26] MEDS ORDERED: IOVERSOL 320 100 ML VIAL IVP ONE ×2 (15:04→16:09)
--- NOTE | 2020-03-26 15:20 | CT Report ---
PROCEDURE: Abdomen/Pelvis W INDICATIONS: IV only, RLQ pain CONTRAST: IV CONTRAST: Optiray 320 ml: 100 PO CONTRAST: *NO PO CONTRAST TECHNIQUE: After the administration of intravenous contrast, 5 mm thick sections acquired from the diaphragms to the symphysis. 5 mm thick coronal and sagittal reformats were acquired. For radiation dose reducti on, the following was used: automated exposure control, adjustment of mA and/or kV according to leslye ent size. COMPARISON: None. FINDINGS: Image quality: Excellent. ABDOMEN: Lung bases: Lung bases are clear. Heart size is normal. Solid organs: Liver and spleen are normal in size and enhancement. Gallbladder is normal. Biliary system is non dilated. Pancreas enhances normally. No adrenal nodules. Kidneys demonstrate normal size and enhancement, without hydronephrosis. Peritoneum and bowel: The appendix is normal, nondilated and without adjacent inflammatory change. Th ere is circumferential wall thickening of the descending and proximal transverse colon with associate d submucosal edema and mucosal hyperenhancement. Remainder of the colon is unremarkable with the exce ption of a few scattered diverticula. Nodes and vessels: Diffuse aortic atherosclerosis extending into the major visceral branches and juan miguel c arteries. IVC is nonopacified and not evaluated. Portal veins appear patent. Miscellaneous: No ventral hernias. PELVIS: Genitourinary: Bladder wall thickness is normal. Miscellaneous: No inguinal hernias or adenopathy. Bones: No suspicious bony lesions. No vertebral body compression fractures. IMPRESSION: Diffuse right colonic wall thickening with some mucosal edema and mucosal hyperenhancement. Findings may represent inflammatory, or ischemic colitis. No findings of appendicitis. Reviewed by: Roshan Fisher MD on 03/26/2020 3:19 PM PST Approved by: Roshan Fisher MD on 03/26/2020 3:19 PM PST Station ID: [id number]
[2020-03-26] MEDS ORDERED: CIPROFLOXACIN 250 MG TABLET PO STA (16:21)
[2020-03-26] MEDS ORDERED: metroNIDAZOLE 250 MG TABLET PO STA (16:21)
[2020-03-26 16:43] VITALS: BP 125/94
== END 2020-03-26 16:43 | disposition home or self-care (01) ==
LOC: ED 13:33
DX: K52.89 Other specified noninfective gastroenteritis and colitis (principal); F17.200 Nicotine dependence, unspecified, uncomplicated
CPT/HCPCS: 36415; 74177; 80053; 81003; 81025; 83605; 83690; 85025; 96374; 96376; 99283; 99284; A9270; Q9967; 81001; 87086

== ENCOUNTER 2020-04-10 08:46 | Emergency (ER) | payer MEDICAID ==
--- NOTE | 2020-04-10 09:15 | ED Physician Documentation ---
PD HPI URI - Stated complaint Stated Complaint: RUNNY NOSE,DIARRHEA - Chief complaint Chief Complaint: Abd Pain - History obtained from History obtained from: Patient - History of Present Illness Timing - onset: Today, Last night Timing duration: Hours Timing details: Abrupt onset, Still present (she felt okay yesterday and was awakened during night with lower/general abd cramping and diarrhea. Several episodes of diarrhea over hours. Tapered now with last BM 2 hrs ago. However wtill with some lower abd cramping. Nausea with couple episdoes vomiting. Had mild congestion and runny nose.) Associated symptoms: Nasal congestion, NVD. No: Fever, Chills, Dry cough, Productive cough, Hemoptysis, Chest pain, Dyspnea Contributing factors: No: Sick contact, Immunocompromised Similar symptoms before: Diagnosis (seen 2 weeks ago for abd pain and Dx with colitis by CT scan. Rx with flagyl and Bactrim. Was improved and feeling normal. FInished abx 5 days ago and was feeling okay. Now cramps/diarrhea abrupt today.) Recently seen: Emergency Dept Review of Systems Constitutional: reports: Myalgias. denies: Fever, Chills Nose: reports: Rhinorrhea / runny nose Throat: denies: Sore throat Respiratory: denies: Dyspnea, Cough GI: reports: Abdominal Pain, Nausea, Vomiting, Diarrhea. denies: Constipation, Bloody / black stool : reports: Discharge (mild for few days. she thinks maybe yeast infection.). denies: Dysuria, Hematuria Skin: denies: Rash Neurologic: reports: Generalized weakness. 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 : None HEENT: None Psych: None Musculoskeletal: None Derm: None - Past Surgical History Past Surgical History: No - Present Medications Home Medications: Ambulatory Orders Medication Instructions Recorded Confirmed Diphenoxylate/Atropine [Lomotil] 1 each PO QID PRN #12 tablet 04/10/20 L.acid/L.casei/B.bif/B.maxwell/Fos 1 each PO BID #15 capsule 04/10/20 [Probiotic Blend Capsule] Ondansetron Odt [Zofran] 4 mg TL Q6H PRN #10 tablet 04/10/20 - Allergies Allergies/Adverse Reactions: Allergies Allergy/AdvReac Type Severity Reaction Status Date / Time No Known Drug Allergies Allergy Verified 03/26/20 13:35 - Social History Does the pt smoke?: Yes Smoking Status: Current every day smoker Does the pt drink ETOH?: Yes Does the pt have substance abuse?: Yes - Immunizations Immunizations are current?: Yes - POLST Patient has POLST: No PD ED PE NORMAL - Vitals Vital signs reviewed: Yes - General General: Alert and oriented X 3, Well developed/nourished - HEENT HEENT: Pharynx benign. No: Moist mucous membranes - Neck Neck: Supple, no meningeal sign, No adenopathy - Cardiac Cardiac: RRR, No murmur - Respiratory Respiratory: Clear bilaterally - Abdomen Abdomen: Normal bowel sounds, Soft, Non distended, No organomegaly, Other ( increased bowel sounds and lower abd tenderness generally without percussion nor rebound tenderness. ) - Female Female : Deferred - Rectal Rectal: Deferred Results - Vitals Vitals: Vital Signs - 24 hr 04/10/20 04/10/20 08:56 14:23 Temperature 36.6 C 36.9 C Heart Rate 56 L 60 Respiratory 19 19 Rate Blood Pressure 140/70 H 128/67 O2 Saturation 98 99 Oxygen O2 Source Room air - Labs Labs: Laboratory Tests 04/10/20 04/10/20 04/10/20 09:11 09:55 09:55 WBC 7.4 RBC 4.72 Hgb 10.4 L Hct 33.9 L MCV 71.8 L MCH 22.0 L MCHC 30.7 L RDW 25.1 H Plt Count 545 H MPV 9.4 Neut # (Auto) Not Reportable Lymph # (Auto) Not Reportable [place] # (Auto) Not Reportable Eos # (Auto) Not Reportable Baso # (Auto) Not Reportable Absolute Nucleated RBC Not Reportable Total Counted 100 Band Neuts % (Manual) 0 Reactive Lymphs % (Man) 4 Abnorm Lymph % (Manual) 0 Nucleated RBC % Not Reportable Neutrophils # (Manual) 3.0 Lymphocytes # (Manual) 3.4 Monocytes # (Manual) 0.8 Eosinophils # (Manual) 0.2 Basophils # (Manual) 0.0 Differential Comment MANUAL DIFFERENTIAL Platelet Estimate INCREASED (>450,000) Platelet Morphology NORMAL APPEARANCE RBC Morph Micro Appear 3+ ANISOCYTOSIS Sodium 137 Potassium 4.1 Chloride 102 Carbon Dioxide 26 Anion Gap 9.0 BUN 9 Creatinine 0.5 Estimated GFR (MDRD) 160 Glucose 92 Calcium 8.8 Magnesium 2.2 Total Bilirubin 0.3 AST 16 ALT 12 Alkaline Phosphatase 55 Total Protein 7.7 Albumin 4.1 Globulin 3.6 Albumin/Globulin Ratio 1.1 Lipase 17 L Urine Color YELLOW Urine Clarity CLEAR Urine pH 5.5 Ur Specific [place] >=1.030 H Urine Protein NEGATIVE Urine Glucose (UA) NEGATIVE Urine Ketones NEGATIVE Urine Occult Blood NEGATIVE Urine Nitrite NEGATIVE Urine Bilirubin NEGATIVE Urine Urobilinogen 0.2 (NORMAL) Ur Leukocyte Esterase NEGATIVE Ur Microscopic Review NOT INDICATED Urine Culture Comments NOT INDICATED Urine HCG, Qual NEGATIVE - Rads (name of study) abd/pelvic CT Radiology: Prelim report reviewed (resolution of prior colitis. No other acute process. ), See rad report PD MEDICAL DECISION MAKING - ED course Complexity details: reviewed results, re-evaluated patient (feeling much better with fluids and IV meds. CT okay. Has not had to have BM yet here.), considered differential (consider return of colitis, since off abx 5 days. Or consider abx induced c.diff. or other imbalance. Less likely food poisoning or viral GE. ), d/w patient Departure - Departure Disposition: 01 Home, Self Care Clinical Impression: Acute diarrhea, Bilateral lower abdominal cramping Condition: Stable Record reviewed to determine appropriate education?: Yes Instructions: ED Gastroenteritis Report Pend Follow-Up: Alexia Puente MD [Primary Care Provider] - Prescriptions: Diphenoxylate/Atropine [Lomotil] 1 each PO QID PRN #12 tablet PRN Reason: Diarrhea L.acid/L.casei/B.bif/B.maxwell/Fos [Probiotic Blend Capsule] 1 each PO BID #15 capsule Ondansetron Odt [Zofran] 4 mg TL Q6H PRN #10 tablet PRN Reason: Nausea / Vomiting Comments: Your CT scan shows resolution of the prior colitis. The cramps and diarrhea you had today may be an acute viral illness or related to food related ("food poisoning"). Knee is typically will be short duration of 1 or 2 days. However given the recent antibiotics you are on, a concern would be the development of an imbalance of the intestinal adriana and perhaps even and "uncovering" of dormant germs such as C. difficile. A stool test would help elicit eliminate those concerns. Obtain a diarrhea stool sample at home. You can put it in to the specimen container and put it in the fridge. Bring it with you to your appointment on Sunday. Meanwhile hyou can use probiotic bland twice daily for the next several days to week. Add Lomotil if needed for diarrhea and ondansetron if needed for nausea. Tylenol if needed for pains. Return if significantly worse over the next couple of days. Forms: Activity restrictions Discharge Date/Time: 04/10/20 14:27
[2020-04-10 09:18] LABS: BILIRUBIN,URINE NEGATIVE (NEGATIVE); GLUCOSE, URINE (UA) NEGATIVE (NEGATIVE); KETONES,URINE (UA) NEGATIVE (NEGATIVE); LEUKOCYTE ESTERASE, URINE NEGATIVE (NEGATIVE); NITRITE,URINE NEGATIVE (NEGATIVE); OCCULT BLOOD,URINE NEGATIVE (NEGATIVE); PH,URINE 5.5 PH (5.0-7.5); PROTEIN,URINE NEGATIVE (NEGATIVE); UROBILINOGEN,URINE 0.2 (NORMAL) E.U./dL (NORMAL)
[2020-04-10 09:21] LABS: CLARITY,URINE CLEAR (CLEAR); HCG UR QUAL NEGATIVE
[2020-04-10] MEDS ORDERED: ONDANSETRON 4 MG/2 ML VIAL IVP STA (09:49)
[2020-04-10] MEDS ORDERED: SODIUM CHLORIDE 0.9% 1,000 ML IV STA (09:49)
[2020-04-10 10:19] LABS: BASOPHILS % (AUTO) 0.5 %; EOSINOPHILS % (AUTO) 1.8 %; HGB - HEMOGLOBIN 10.4 g/dL (12.0-16.0); MEAN CORPUSCULAR HGB CONC 30.7 g/dL (32.0-36.0); MEAN CORPUSCULAR VOLUME 71.8 fL (81.0-99.0); MEAN PLATELET VOLUME 9.4 fL (7.9-10.8); MONOCYTES % (AUTO) 11.6 %; NEUTROPHILS % (AUTO) 42.8 %; PLT - PLATELET COUNT 545 10^3/uL (130-450); RED BLOOD COUNT 4.72 10^6/uL (4.20-5.40); RED CELL DISTRIBUTION WIDTH 25.1 % (12.0-15.0); WHITE BLOOD COUNT 7.4 x10^3/uL (4.8-10.8)
[2020-04-10 10:27] LABS: ALBUMIN 4.1 g/dL (3.2-5.5); ALBUMIN/GLOBULIN RATIO 1.1 (1.0-2.2); BILIRUBIN,TOTAL 0.3 mg/dL (0.2-1.0); CALCIUM 8.8 mg/dL (8.5-10.3); CREATININE 0.5 mg/dL (0.4-1.0); MAGNESIUM 2.2 mg/dL (1.7-2.8); TOTAL PROTEIN 7.7 g/dL (6.7-8.2)
[2020-04-10 10:32] LABS: ABNORMAL LYMPHS % (MANUAL) 0 %; BAND NEUTROPHILS % (MANUAL) 0 %
[2020-04-10 11:00] LABS: EOSINOPHILS # (MANUAL) 0.2 10^3/uL (0-0.7); LYMPHOCYTES # (MANUAL) 3.4 10^3/uL (1.5-3.5); LYMPHOCYTES % (MANUAL) 42 %; MONOCYTES # (MANUAL) 0.8 10^3/uL (0.0-1.0)
[2020-04-10 11:01] LABS: DIFFERENTIAL COMMENT MANUAL DIFFERENTIAL; PLATELET ESTIMATE, MANUAL INCREASED (>450,000) (NORMAL); PLATELET MORPHOLOGY NORMAL APPEARANCE (NORMAL)
[2020-04-10] MEDS ORDERED: IOVERSOL 320 100 ML VIAL IVP ONE ×2 (11:57→13:09)
--- NOTE | 2020-04-10 13:32 | CT Report ---
PROCEDURE: Abdomen/Pelvis W INDICATIONS: lower abd pain; recent colitis CONTRAST: IV CONTRAST: Optiray 320 ml: 100 PO CONTRAST: *NO PO CONTRAST TECHNIQUE: After the administration of intravenous contrast, 5 mm thick sections acquired from the diaphragms to the symphysis. 5 mm thick coronal and sagittal reformats were acquired. For radiation dose reducti on, the following was used: automated exposure control, adjustment of mA and/or kV according to leslye ent size. COMPARISON: CT abdomen and pelvis 03/26/2020. FINDINGS: Image quality: Excellent. ABDOMEN: Lung bases: Lung bases are clear. Heart size is normal. Solid organs: Liver is normal in size and enhancement. Small stable hypodensities likely benign cyst s or hemangiomas. Gallbladder is unremarkable. Biliary system is non dilated. Pancreas enhances nor lyle. Spleen is smaller than expected. No adrenal nodules. Kidneys demonstrate normal size and enha ncement, without hydronephrosis. Peritoneum and bowel: Colonic wall thickening is nearly resolved compared to CT 03/26/2020. Retroceca l appendix is within normal limits in caliber and is gas-filled. No small bowel obstruction. No free fluid or air. Nodes and vessels: No retroperitoneal or mesenteric adenopathy by size criteria. Aorta and inferior vena cava are normal in size. Moderate atherosclerotic plaque in the aortoiliac arteries. This is ea rly for patient's age. Miscellaneous: No ventral hernias. Mild subcutaneous edema. PELVIS: Genitourinary: Bladder wall thickness is normal. Anteverted uterus is somewhat elongated. Small righ t ovarian cyst. Miscellaneous: No inguinal hernias or adenopathy. Bones: No suspicious bony lesions. Degenerative change at the pubic symphysis and SI joints. No treva tebral body compression fractures. IMPRESSION: 1. No new or worsening inflammatory process is identified. No free fluid. Normal appendix. 2. Near resolution of the previously seen colonic wall thickening. 3. Moderate aortoiliac atherosclerotic plaque which is earlier than expected for patient's age. 4. Spleen is small. Reviewed by: Deangelo Kong MD on 04/10/2020 12:31 PM [facility] Approved by: Deangelo Kong MD on 04/10/2020 12:31 PM [facility] Station ID: [id number]
[2020-04-10 14:24] VITALS: BP 128/67
== END 2020-04-10 14:27 | disposition home or self-care (01) ==
LOC: ED 08:46
DX: R19.7 Diarrhea, unspecified (principal); R10.30 Lower abdominal pain, unspecified; R11.2 Nausea with vomiting, unspecified; R09.89 Other specified symptoms and signs involving the circulatory and respiratory systems; R53.1 Weakness; Z20.828 Contact with and (suspected) exposure to other viral communicable diseases; F17.200 Nicotine dependence, unspecified, uncomplicated
CPT/HCPCS: 36415; 74177; 80053; 81003; 81025; 83690; 83735; 85025; 87635; 96374; 99284; Q9967; 81001; 87086

== ENCOUNTER 2020-04-12 08:00 | Outpatient (CLI) | payer MEDICAID ==
[2020-04-13 21:43] LABS: CANDIDA GROUP DNA POSITIVE (NEGATIVE); CANDIDA KRUSEI DNA NEGATIVE (NEGATIVE); TRICHOMONAS VAGINALIS DNA NEGATIVE (NEGATIVE)
[2020-04-13 23:01] LABS: TRICHOMONAS VAGINALIS DNA NEGATIVE (NEGATIVE)
== END 2020-04-12 23:59 | disposition home or self-care (01) ==
LOC: LAB.R 08:00
PROVIDERS: ATTEND Obstetrics & Gynecology
DX: N89.8 Other specified noninflammatory disorders of vagina (principal); R19.7 Diarrhea, unspecified
CPT/HCPCS: 87491; 87493; 87591; 87661; 87801

== ENCOUNTER 2020-08-03 12:07 | Emergency (ER) | payer MEDICAID ==
[2020-08-03 12:18] VITALS: BP 170/104
--- OUTSIDE RECORDS SUMMARY | 2020-08-04 03:23 | EXTERNAL MEDICAL SUMMARY RPT | Continuity of Care Document ---
:1970 Demographics Phone Unavailable Preferred Language Unknown Marital Status Unknown Buddhism Affiliation Unknown Race Unknown Ethnic Group Unknown Author Organization [facility] Address [address] [place] [address] Phone Social History date description facility [phone]
--- OUTSIDE RECORDS SUMMARY | 2020-08-04 03:23 | EXTERNAL MEDICAL SUMMARY RPT | Continuity of Care Document ---
:1970 Demographics Phone Unavailable Preferred Language Unknown Marital Status Unknown Adventist Affiliation Unknown Race Unknown Ethnic Group Unknown Author Organization [facility] Address [address] [place] [address] Phone Social History date description facility [phone]
== END 2020-08-03 13:05 | disposition left against medical advice (07) ==
LOC: ED 12:07
DX: Z53.21 Procedure and treatment not carried out due to patient leaving prior to being seen by health care provider (principal)

== ENCOUNTER 2020-08-27 08:28 | Emergency (ER) | payer MEDICAID ==
--- OUTSIDE RECORDS SUMMARY | 2020-08-27 08:32 | EXTERNAL MEDICAL SUMMARY RPT | Continuity of Care Document ---
:1970 Demographics Phone Unavailable Preferred Language Unknown Marital Status Unknown Samaritan Affiliation Unknown Race Unknown Ethnic Group Unknown Author Organization [facility] Address [address] [id number] Phone Social History date description facility [phone]
--- NOTE | 2020-08-27 09:02 | ED Physician Documentation ---
PD HPI NVD - Stated complaint Stated Complaint: N/V/D - History obtained from History obtained from: Patient - History of Present Illness Timing - onset: Last night Timing - duration: Hours Timing - details: Abrupt onset, Gradual onset, Waxing and waning Associated symptoms: Abdominal pain (lower left), Loss of appetite. No: Fever, Hematemesis, Melena Contributing factors: Recent antibiotics (treated for strep throat about 4 weeks ago without intestinal symptoms at that time.). No: Sick contact, Bad food, Travel Improved by: No: Laying still Worsened by: Eating, Moving, Palpation (lower abd). No: Breathing Similar symptoms before: Diagnosis (similar to episode of colitis seen on CT this past April.) Recently seen: Clinic (4 weeks ago for strep throat) Review of Systems Constitutional: reports: Myalgias. denies: Fever, Chills Nose: denies: Rhinorrhea / runny nose, Congestion Throat: denies: Sore throat Cardiac: denies: Chest pain / pressure Respiratory: denies: Cough GI: reports: Abdominal Pain, Nausea, Vomiting, Diarrhea (couple episodes of soft stool since overnight.). denies: Constipation Skin: denies: Rash, Lesions Musculoskeletal: denies: Neck pain, Back pain Neurologic: reports: Generalized weakness. denies: Focal weakness, Numbness, Near syncope PD PAST MEDICAL HISTORY - Past Medical History Cardiovascular: None Respiratory: None Neuro: None Endocrine/Autoimmune: None GI: None RISK SPECIALIST: None : None HEENT: Chronic vision loss Psych: None Musculoskeletal: None Derm: None - Past Surgical History Past Surgical History: No /RISK SPECIALIST: Dilation and currettage, Tubal ligation - Present Medications Home Medications: Ambulatory Orders Medication Instructions Recorded Confirmed Fluconazole [Diflucan] 150 mg PO Q3D #2 tablet 08/27/20 HYDROcod/ACETAM 5/325 [Erwin 5/325] 1 ea PO Q6H PRN #15 tablet 08/27/20 Ondansetron Odt [Zofran] 4 mg TL Q6H PRN #10 tablet 08/27/20 cephALEXin [Keflex] 500 mg PO TID #15 cap 08/27/20 metroNIDAZOLE [Flagyl] 500 mg PO BID #10 tablet 08/27/20 - Allergies Allergies/Adverse Reactions: Allergies Allergy/AdvReac Type Severity Reaction Status Date / Time No Known Drug Allergies Allergy Verified 08/03/20 12:14 - Social History Does the pt smoke?: Yes Smoking Status: Current every day smoker Does the pt drink ETOH?: Yes Does the pt have substance abuse?: Yes - Immunizations Immunizations are current?: Yes - POLST Patient has POLST: No PD ED PE NORMAL - Vitals Vital signs reviewed: Yes - General General: Alert and oriented X 3, Well developed/nourished, Other (appears in pain lower abd, knees drawn up. ) - HEENT HEENT: Pharynx benign - Neck Neck: Supple, no meningeal sign, No adenopathy - Cardiac Cardiac: RRR, No murmur - Respiratory Respiratory: Clear bilaterally - Abdomen Abdomen: Normal bowel sounds, Soft, Non distended, No organomegaly, Other ( tender LLQ without guarding nor percussion tenderness. ) - Female Female : Deferred - Rectal Rectal: Deferred - Back Back: No CVA TTP - Derm Derm: Normal color - Extremities Extremities: Normal ROM s pain, No edema, No calf tenderness / cord - Neuro Neuro: Alert and oriented X 3, No motor deficit, Normal speech Results - Vitals Vitals: Vital Signs - 24 hr 08/27/20 08/27/20 08:59 10:50 Temperature 36.4 C L 36.6 C Heart Rate 60 54 L Respiratory 17 16 Rate Blood Pressure 135/82 H 134/89 H O2 Saturation 99 99 Oxygen O2 Source Room air - Labs Labs: Laboratory Tests 08/27/20 08/27/20 08/27/20 09:16 09:21 09:21 WBC 8.3 RBC 4.76 Hgb 10.9 L Hct 35.0 L MCV 73.5 L MCH 22.9 L MCHC 31.1 L RDW 21.4 H Plt Count 650 H MPV 9.7 Neut # (Auto) Not Reportable Lymph # (Auto) Not Reportable [place] # (Auto) Not Reportable Eos # (Auto) Not Reportable Baso # (Auto) Not Reportable Absolute Nucleated RBC Not Reportable Total Counted 100 Band Neuts % (Manual) 0 Abnorm Lymph % (Manual) 0 Nucleated RBC % Not Reportable Neutrophils # (Manual) 4.2 Lymphocytes # (Manual) 3.2 Monocytes # (Manual) 0.9 Eosinophils # (Manual) 0.0 Basophils # (Manual) 0.0 Differential Comment MANUAL DIFFERENTIAL Manual Slide Review Indicated WBC Morphology 1+ SMUDGE CELLS Platelet Estimate INCREASED (>450,000) Platelet Morphology NORMAL APPEARANCE RBC Morph Micro Appear 2+ TARGET CELLS Sodium 139 Potassium 3.9 Chloride 104 Carbon Dioxide 26 Anion Gap 9.0 BUN 13 Creatinine 0.6 Estimated GFR (MDRD) 129 Glucose 108 H Calcium 9.3 Total Bilirubin 0.6 AST 17 ALT 15 Alkaline Phosphatase 52 C-Reactive Protein 3.1 H Total Protein 7.6 Albumin 4.2 Globulin 3.4 Albumin/Globulin Ratio 1.2 Lipase 20 L Urine Color YELLOW Urine Clarity CLEAR Urine pH 6.0 Ur Specific [place] 1.025 Urine Protein NEGATIVE Urine Glucose (UA) NEGATIVE Urine Ketones NEGATIVE Urine Occult Blood NEGATIVE Urine Nitrite NEGATIVE Urine Bilirubin NEGATIVE Urine Urobilinogen 0.2 (NORMAL) Ur Leukocyte Esterase NEGATIVE Ur Microscopic Review NOT INDICATED Urine Culture Comments NOT INDICATED Urine HCG, Qual NEGATIVE PD MEDICAL DECISION MAKING - ED course Complexity details: reviewed results, re-evaluated patient (feeling better with fluids and meds. ), considered differential (symptoms feel similar to her to episode of lower colitis. Does not have peritoneal signs. Shared decision to not do imaging at this time. ), d/w patient Departure - Departure Disposition: 01 Home, Self Care Clinical Impression: Lower abdominal pain, Colitis Diarrhea Qualifiers: Diarrhea type: presumed infectious Qualified Code(s): R19.7 - Diarrhea, unspecified Condition: Stable Record reviewed to determine appropriate education?: Yes Prescriptions: Fluconazole [Diflucan] 150 mg PO Q3D #2 tablet metroNIDAZOLE [Flagyl] 500 mg PO BID #10 tablet cephALEXin [Keflex] 500 mg PO TID #15 cap HYDROcod/ACETAM 5/325 [Erwin 5/325] 1 ea PO Q6H PRN #15 tablet PRN Reason: Pain Ondansetron Odt [Zofran] 4 mg TL Q6H PRN #10 tablet PRN Reason: Nausea / Vomiting Comments: Your white count on your blood test is good. Your slightly anemic on the red cell count. Your other electrolytes and such are good. Urine is normal. Your symptoms would suggest a recurrent colitis like you had earlier in the year. We can treat this with combination of antibiotics as well as nausea medicine and pain medicine over the next 5 days. Recheck if not improving well over the next 2 to 3 days and resolved by 3 to 5 days. Stay well-hydrated and regular food is okay. Add Diflucan antifungal to reduce the chance of developing yeast infection from the antibiotics. Discharge Date/Time: 08/27/20 10:54
[2020-08-27] MEDS ORDERED: ONDANSETRON 4 MG/2 ML VIAL IVP STA (09:18)
[2020-08-27] MEDS ORDERED: SODIUM CHLORIDE 0.9% 1,000 ML IV STA (09:18)
[2020-08-27] MEDS ORDERED: HYDROmorphone 1 MG/ML CARPUJECT IVP STA (09:18)
[2020-08-27] MEDS ORDERED: KETOROLAC 30 MG/ML VIAL IVP STA (09:18)
[2020-08-27 09:31] LABS: BASOPHILS % (AUTO) 0.4 %; EOSINOPHILS % (AUTO) 0.5 %; HGB - HEMOGLOBIN 10.9 g/dL (12.0-16.0); LYMPHOCYTES % (AUTO) 30.1 %; MEAN CORPUSCULAR HEMOGLOBIN 22.9 pg (27.0-31.0); MEAN CORPUSCULAR HGB CONC 31.1 g/dL (32.0-36.0); MEAN CORPUSCULAR VOLUME 73.5 fL (81.0-99.0); MEAN PLATELET VOLUME 9.7 fL (7.9-10.8); MONOCYTES % (AUTO) 9.2 %; NEUTROPHILS % (AUTO) 59.7 %; PLT - PLATELET COUNT 650 10^3/uL (130-450); RED BLOOD COUNT 4.76 10^6/uL (4.20-5.40); RED CELL DISTRIBUTION WIDTH 21.4 % (12.0-15.0); WHITE BLOOD COUNT 8.3 x10^3/uL (4.8-10.8)
[2020-08-27 09:32] LABS: SLIDE REVIEW? Indicated
[2020-08-27 09:34] LABS: ABNORMAL LYMPHS % (MANUAL) 0 %; BAND NEUTROPHILS % (MANUAL) 0 %
--- OUTSIDE RECORDS SUMMARY | 2020-08-27 09:34 | EXTERNAL MEDICAL SUMMARY RPT | Continuity of Care Document ---
:1970 Demographics Phone Unavailable Preferred Language Unknown Marital Status Unknown Jain Affiliation Unknown Race Unknown Ethnic Group Unknown Author Organization [place] Address [address] [id number] Phone Social History date description facility [id number]
[2020-08-27 09:38] LABS: BILIRUBIN,URINE NEGATIVE (NEGATIVE); GLUCOSE, URINE (UA) NEGATIVE (NEGATIVE); KETONES,URINE (UA) NEGATIVE (NEGATIVE); LEUKOCYTE ESTERASE, URINE NEGATIVE (NEGATIVE); NITRITE,URINE NEGATIVE (NEGATIVE); OCCULT BLOOD,URINE NEGATIVE (NEGATIVE); PROTEIN,URINE NEGATIVE (NEGATIVE); UROBILINOGEN,URINE 0.2 (NORMAL) E.U./dL (NORMAL)
[2020-08-27 09:40] LABS: CLARITY,URINE CLEAR (CLEAR); HCG UR QUAL NEGATIVE
[2020-08-27 09:49] LABS: ALBUMIN 4.2 g/dL (3.2-5.5); ALBUMIN/GLOBULIN RATIO 1.2 (1.0-2.2); BILIRUBIN,TOTAL 0.6 mg/dL (0.2-1.0); CALCIUM 9.3 mg/dL (8.5-10.3); CREATININE 0.6 mg/dL (0.4-1.0); CRP - C-REACTIVE PROTEIN 3.1 mg/dL (0-1.0); LYMPHOCYTES # (MANUAL) 3.2 10^3/uL (1.5-3.5); LYMPHOCYTES % (MANUAL) 39 %; MONOCYTES # (MANUAL) 0.9 10^3/uL (0.0-1.0); NEUTROPHILS # (MANUAL) 4.2 10^3/uL (1.5-6.6); POTASSIUM 3.9 mmol/L (3.5-5.0); TOTAL PROTEIN 7.6 g/dL (6.7-8.2)
[2020-08-27 09:51] LABS: DIFFERENTIAL COMMENT MANUAL DIFFERENTIAL; PLATELET ESTIMATE, MANUAL INCREASED (>450,000) (NORMAL); PLATELET MORPHOLOGY NORMAL APPEARANCE (NORMAL); WBC MORPHOLOGY (MULTIPLE) 1+ SMUDGE CELLS (NORMAL)
[2020-08-27] MEDS ORDERED: cefTRIAXone 1 GM VIAL IVP STA (10:20)
[2020-08-27] MEDS ORDERED: metroNIDAZOLE 250 MG TABLET PO STA (10:21)
[2020-08-27 10:53] VITALS: BP 134/89
== END 2020-08-27 10:54 | disposition home or self-care (01) ==
LOC: ED 08:28
DX: Z01.812 Encounter for preprocedural laboratory examination (principal); K52.9 Noninfective gastroenteritis and colitis, unspecified; F17.200 Nicotine dependence, unspecified, uncomplicated; Z13.220 Encounter for screening for lipoid disorders; Z13.21 Encounter for screening for nutritional disorder; R53.83 Other fatigue; D50.9 Iron deficiency anemia, unspecified; Z13.1 Encounter for screening for diabetes mellitus; Z83.49 Family history of other endocrine, nutritional and metabolic diseases; R87.613 High grade squamous intraepithelial lesion on cytologic smear of cervix (HGSIL); R87.619 Unspecified abnormal cytological findings in specimens from cervix uteri; B97.7 Papillomavirus as the cause of diseases classified elsewhere; R53.81 Other malaise; Z84.1 Family history of disorders of kidney and ureter; Z20.822 Contact with and (suspected) exposure to COVID-19
CPT/HCPCS: 36415; 80053; 80061; 81003; 81025; 82306; 83036; 83690; 84443; 85025; 86140; 87635; 96361; 96374; 96375; 99283; 99284; A9270; J1170; 81001; 83721; 87086

== ENCOUNTER 2020-08-27 13:49 | Outpatient (CLI) | payer MEDICAID ==
[2020-08-27 10:09] LABS: CHOL/HDL RATIO 4.2 (<4.4); CHOLESTEROL 215 mg/dL; HDL CHOLESTEROL 51 mg/dL; LDL CHOLESTEROL,CALCULATED 148 mg/dL; LDL/HDL RATIO 2.9 (<4.4); TRIGLYCERIDES 82 mg/dL; VLDL CHOLESTEROL 16 mg/dL
[2020-08-27 10:18] LABS: THYROID STIMULATING HORMONE 0.37 uIU/mL (0.34-5.60)
[2020-08-27 12:58] LABS: ESTIMATED AVERAGE GLUCOSE 114 mg/dL (70-100); HEMOGLOBIN A1c% 5.6 % (4.27-6.07)
== END 2020-08-27 13:50 | disposition home or self-care (01) ==
LOC: LAB 13:49
PROVIDERS: ATTEND Obstetrics & Gynecology
DX: Z01.812 Encounter for preprocedural laboratory examination (principal); Z13.220 Encounter for screening for lipoid disorders; Z13.21 Encounter for screening for nutritional disorder; R53.83 Other fatigue; D50.9 Iron deficiency anemia, unspecified; Z13.1 Encounter for screening for diabetes mellitus; Z83.49 Family history of other endocrine, nutritional and metabolic diseases; R87.613 High grade squamous intraepithelial lesion on cytologic smear of cervix (HGSIL); R87.619 Unspecified abnormal cytological findings in specimens from cervix uteri; B97.7 Papillomavirus as the cause of diseases classified elsewhere; R53.81 Other malaise; Z84.1 Family history of disorders of kidney and ureter; Z20.822 Contact with and (suspected) exposure to COVID-19
CPT/HCPCS: 36415; 80061; 82306; 83036; 83721; 84443

== ENCOUNTER 2020-09-01 08:21 | Day surgery (SDC) | payer MEDICAID ==
[~2020-09-01 08:21] MED LIST changes: -ACETAMINOPHEN 1,000 MG/100 ML 100 ML IV ONE; +BUPIVACAINE 0.25% PF 30 ML VIAL ONE; -CELECOXIB 100 MG CAPSULE PO ONE; -GABAPENTIN 400 MG CAPSULE ONE; +LIDOCAINE MPF 2%-EPI 1:200000 20 ML VIAL ONE; +SILVER NITRATE APPLICATOR TOP ONE
[2020-09-01 08:42] LABS: HCG UR QUAL NEGATIVE
[2020-09-01] MEDS ORDERED: LACTATED RINGERS 1,000 ML IV ONE ×2 (08:47→11:17)
[2020-09-01] MEDS ORDERED: HYDROmorphone 0.5 MG/0.5 ML SYRINGE IVP PRN (09:27)
[2020-09-01] MEDS ORDERED: METOCLOPRAMIDE 10 MG/2 ML VIAL IVP PRN (09:27)
[2020-09-01] MEDS ORDERED: ATROPINE ABBOJECT 1 MG/10 ML SYRINGE IVP PRN (09:27)
[2020-09-01] MEDS ORDERED: ONDANSETRON 4 MG/2 ML VIAL IVP PRN (09:27)
[2020-09-01] MEDS ORDERED: fentaNYL 100 MCG/2 ML VIAL IVP PRN (09:27)
[2020-09-01] MEDS ORDERED: MORPHINE 2 MG/ML CARPUJECT IVP PRN (09:27)
[2020-09-01] MEDS ORDERED: ePHEDrine 50 MG/ML VIAL IVP PRN (09:27)
[2020-09-01] MEDS ORDERED: NALOXONE 0.4 MG/ML VIAL IVP PRN (09:27)
--- NOTE | 2020-09-01 09:27 | ANESTHESIA ---
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 - Procedure LEEP, Myosure hysteroscopy D&C Vital Signs: Temp Pulse Resp BP Pulse Ox 36.2 C L 56 L 16 140/80 H 100 09/01/20 08:48 09/01/20 08:48 09/01/20 08:48 09/01/20 08:48 09/01/20 08:48 Height: 5 ft 7 in Weight (kg): 76.5 kg Body Mass Index: 26.4 BMI Classification: Overweight - NPO >8 hours - Is Patient ?: No - Lab Results Lab results reviewed: Yes Home Medications and Allergies Allergies/Adverse Reactions: Allergies Allergy/AdvReac Type Severity Reaction Status Date / Time No Known Drug Allergies Allergy Verified 08/03/20 12:14 Anes History & Medical History - Anesthetic History Anesthesia Complications: reports: No previous complications Family history of Anesthesia Complications: Denies Family history of Malignant Hyperthermia: Denies - Medical History Cardiovascular: reports: None Pulmonary: reports: None Gastrointestinal: reports: None Urinary: reports: None Neuro: reports: None Musculoskeletal: reports: None Endocrine/Autoimmune: reports: None Blood Disorders: reports: None Skin: reports: None Smoking Status: Current every day smoker - Surgical History Gynecologic: reports: Dilation and currettage, Tubal ligation Exam General: Alert, Oriented x3, Cooperative Dental: WNL Mouth Openin Fingerbreadth Neck Mobility: Normal Mallampati classification: I Respiratory: Lungs clear, Normal breath sounds, No respiratory distress, No accessory muscle use Cardiovascular: Regular rate, Normal S1, Normal S2, No murmurs Plan Anesthesia Type: General Consent for Procedure(s) Verified and Reviewed: Yes Code Status: Attempt Resuscitation ASA classification: 2-Mild systemic disease Is this case an emergency?: No
[2020-09-01] MEDS ORDERED: MIDAZOLAM 2 MG/2 ML VIAL ONE (09:54)
[2020-09-01] MEDS ORDERED: fentaNYL 100 MCG/2 ML VIAL ONE (09:54)
[2020-09-01] MEDS ORDERED: LIDOCAINE-MPF 2% 5 ML VIAL ONE (09:55)
[2020-09-01] MEDS ORDERED: LACTATED RINGERS 1,000 ML IV SCH (10:00)
[2020-09-01] MEDS ORDERED: DEXAMETHASONE 4 MG/ML VIAL ONE (10:24)
[2020-09-01] MEDS ORDERED: KETOROLAC 30 MG/ML VIAL ONE (10:24)
[2020-09-01] MEDS ORDERED: ONDANSETRON 4 MG/2 ML VIAL ONE (10:24)
[2020-09-01] MEDS ORDERED: LIDOCAINE 2%-EPI 1:100000 20 ML MDV SUBQ ONE (11:00)
[2020-09-01] MEDS ORDERED: LIDOCAINE 1%-EPI 1:100000 30 ML MDV SUBQ ONE (11:00)
[2020-09-01] MEDS ORDERED: BUPIVACAINE 0.5% PF 30 ML VIAL SUBQ ONE (11:00)
--- NOTE | 2020-09-01 11:22 | OPERATIVE REPORT ---
Operative Report - General Planned Procedure: Dilation and curettage Loop electrical excision procedure Pre-Op Diagnosis: HGSIL on follow up pap smear, DUB Procedure Performed: Dilation and curettage LEEP Post Op Diagnosis: Same - Procedure Note Primary Surgeon: Berna Puente MD Anesthesia Provider: Anish Pugh CRNA Anesthesia Technique: General ET tube Pathology: 1) Uterine contents (from D&C) 2) LEEP biopsy: ectocervical anterior 3) LEEP biopsy: ectocervical posterior 4) LEEP biopsy: endocervical posterior, additional posterior edge 5) LEEP biopsy: endocervical anterior 6) LEEP biopsy: endocervical posterior 7) Endocervical curettage IV Fluids (mL): 800 Estimated Blood Loss (mL): 5 (minimal) Urine Output (mL): 50 (In and out catheterization at start of procedure) Indications: The patient is a 49-year-old well known to this clinic for management of DUB and advanced cervical dysplasia is here for LEEP and D&C under anesthesia. She was last seen on 07/26/20 for repeat pap smear. Pap returned with HGSIL. LEEP procedure was recommended. Patient is reticent to undergo another LEEP without anestheisa. She underwent a LEEP in April of 2019 as well as a hysteroscopy D&C at the same time. Her LEEP sample was negative but the D&C collected at the same time showed EMILI-2 in the fragments collected. Interpreted as contamination of the sample given that both procedures were collected at the same event. She continues to have heavy bleeding. Will obtain D&C for endometrial sampling due to the DUB as well as presence of atypical glandular cells on prior pap smear. Findings: Large patulous cervix with well healed LEEP bed. Uterus is anterior, mobile. Sounds to 7.5 cm. Complications: None - Other Other Information/Narrative: Risks benefits and alternatives to the procedure were reviewed. Consent was again confirmed. Patient was taken to the operating room where she underwent general anesthesia. She was positioned in dorsolithotomy position with legs resting in yellowfin stirrups. The patient was prepped and draped in the usual sterile fashion and placed in the dorsal lithotomy position. A grounding pad was placed on the patients right anterior thigh. A urine test was negative. A time out was performed, correctly identifying the patient and the procedure. Exam under anesthesia was performed. Speculum was placed in the vagina and the cervix was visualized. Single-tooth tenaculum was placed at the anterior cervical lip. The cervical os was serially dilated with Hegar dilators to accommodate the caliber of the curette. Uterus sounded to 7.5 cm. Sharp curettage D&C was performed with sharp curettage. All instruments were removed from the uterus. Tenaculum was removed. Tenaculum sites were noted to be hemostatic. At this time, a bivalved nonconductive speculum was placed in the vagina. Iodine solution was painted along the entire cervix and vaginal wall. Areas of non- uptake were noted to be around the entire squamocolumnar junction. Paracervical block was administered using a total of 20 cc of 1% lidocaine with epinephrine mixed with 0.25% bupivicaine in 1:1 ratio was injected at the 4:00 and 8:00 positions lateral to the portio of the cervix. A large 25x10 mm loop electrode was used to remove the anterior portion of the cervix and a separate posterior specimen was excised and sent to pathology. On additional posterior sample was collected, posterior to the lowest posterior edge of the LEEP bed. A 20x10 mm loop electrode was used to obtain a top hat for excision of the endocervix, anterior and posterior specimens collected. An endocervical curettage was performed and specimen and sent to pathology. The bed of the excised cervical tissue along the cervix was cauterized using the rollerball. Good hemostasis was noted. Monsels was applied to the cervical bed for additional hemostasis support. All instruments were removed from the vagina. Procedure was well-tolerated without complication.
[2020-09-01] MEDS ORDERED: PROPOFOL 200 MG/20 ML VIAL IVP ONE (11:55)
[2020-09-01 12:31] VITALS: BP 131/91
--- NOTE | 2020-09-01 12:40 | ANESTHESIA POST OP EVALUATION ---
Anesthesia Post Eval - Post Anesthesia Eval Vitals: Last Vital Signs Temp 36.3 C L 09/01/20 12:30 Pulse 53 L 09/01/20 12:30 Resp 10 L 09/01/20 12:30 BP 131/91 H 09/01/20 12:30 Pulse Ox 97 09/01/20 12:30 CV Function Including HR & BP: Stable Pain Control: Satisfactory Nausea & Vomiting: Negative Mental Status: Baseline Respiratory Status: Airway Patent Hydration Status: Satisfactory Anesthesia Complications: None
== END 2020-09-01 08:22 | disposition home or self-care (01) ==
LOC: SDS 08:21
PROVIDERS: ATTEND Obstetrics & Gynecology
PROC: 0UBC7ZX Excision of Cervix, Via Natural or Artificial Opening, Diagnostic (ICD-10-PCS; principal; 2020-09-01 09:30)
PROC: 0UDB7ZX Extraction of Endometrium, Via Natural or Artificial Opening, Diagnostic (ICD-10-PCS; 2020-09-01 09:30)
DX: N87.0 Mild cervical dysplasia (principal); N93.8 Other specified abnormal uterine and vaginal bleeding; E66.3 Overweight; Z68.26 Body mass index [BMI] 26.0-26.9, adult; F17.210 Nicotine dependence, cigarettes, uncomplicated
CPT/HCPCS: 57522; 58120; 81025; J7120

== ENCOUNTER 2020-09-03 13:05 | Outpatient (CLI) | payer MEDICAID ==
--- NOTE | 2020-09-06 12:57 | Mammography Report ---
BILATERAL DIGITAL SCREENING MAMMOGRAM 3D/2D: 09/03/2020 CLINICAL: Routine screening. Comparison is made to exams dated: 04/24/2019 mammogram and 03/28/2019 mammogram - [facility]. The tissue of both breasts is heterogeneously dense. This may lower the sensitivity of mammography. No significant masses, calcifications, or other findings are seen in either breast. There has been no significant interval change. IMPRESSION: NEGATIVE There is no mammographic evidence of malignancy. A 1 year screening mammogram is recommended. This exam was interpreted at Station ID: [id number]. NOTE: For mammograms, a report in lay terms will be sent to the patient. Approximately 15% of breast malignancies will not be visualized mammographically. In the management of a palpable breast mass, a negative mammogram must not discourage biopsy of a clinically suspicious lesion. Electronically Signed By: Roshan Fisher M.D., jr/penrad:09/03/2020 15:45:15 ACR BI-RADS Category 1: Negative 3341F PARENCHYMAL PATTERN: (D) - The breast(s) demonstrate(s) heterogeneously dense fibroglandular ayleen maloney. BI-RADS CATEGORY: (1) - 1 RECOMMENDATION: (ANNUAL) - Recommend routine annual screening mammography. [id number] 1 year screening LATERALITY: (B)
== END 2020-09-03 13:06 | disposition home or self-care (01) ==
LOC: DI 13:05
PROVIDERS: ATTEND Obstetrics & Gynecology
DX: Z12.31 Encounter for screening mammogram for malignant neoplasm of breast (principal)

== ENCOUNTER 2021-08-29 08:00 | Outpatient (CLI) | payer MEDICAID ==
[2021-08-29 23:51] LABS: BACTERIAL VAGINOSIS DNA NEGATIVE (NEGATIVE); CANDIDA GLABRATA DNA NEGATIVE (NEGATIVE); CANDIDA GROUP DNA POSITIVE (NEGATIVE); CANDIDA KRUSEI DNA NEGATIVE (NEGATIVE); TRICHOMONAS VAGINALIS DNA NEGATIVE (NEGATIVE)
[2021-08-30 00:35] LABS: CHLAMYDIA TRACHOMATIS DNA NEGATIVE (NEGATIVE); NEISSERIA GONORRHOEAE DNA NEGATIVE (NEGATIVE)
== END 2021-08-29 08:01 | disposition home or self-care (01) ==
LOC: LAB.N 08:00
PROVIDERS: ATTEND Nurse Practitioner
DX: N89.8 Other specified noninflammatory disorders of vagina (principal)
CPT/HCPCS: 81514; 87491; 87591; 87661

== ENCOUNTER 2021-09-15 10:40 | Emergency (ER) | payer MEDICAID ==
--- NOTE | 2021-09-15 11:36 | ED Physician Documentation ---
PD HPI HEADACHE - Stated complaint Stated Complaint: HEADACHE - Chief complaint Chief Complaint: General - History obtained from History obtained from: Patient - History of Present Illness Timing - onset: How many weeks ago (1-2 weeks of consistent pressure headache frontal/diffuse. Previously had had it intermittently for past couple months. SOme light sensitive. some blurry vision. No scotomata nor wiggly lines. No focal weakness. WIth the headache persisting, her coworker said to check BP. SHe checked it at work.), Other (she works at [employer] and nurse there took her BP. It was elevated yesterday and today in 160-170 systolic range. SHe was told by the nurse to get eval at ER.) Timing - onset during: Other (she had not checked BP recently, so not sure of recent normal without the current headache.) Timing - details: Gradual onset, Still present, Waxing and waning Worst headache ever?: No: Worst headache ever? Location: Front, Global Quality: Tightness (with pressure feeling.) Associated symptoms: Nausea, Vision changes (some bluriness of both eyes.). No: Fever, Stiff neck, Vomiting, Weakness, Numbness Improved by: No: Meds (took Advil without improvement.) Worsened by: Light Contributing factors: Hypertension (2 days of readings that are elevated moderately. Unknown baseline recently.). No: Anticoagulated, Recent illness, Trauma Similar symptoms before: Has not had sx before Recently seen: Not recently seen Review of Systems Constitutional: denies: Fever, Chills Eyes: reports: Decreased vision, Photophobia Nose: denies: Rhinorrhea / runny nose, Congestion Throat: denies: Sore throat Cardiac: denies: Chest pain / pressure, Palpitations, Pedal edema, Calf pain Respiratory: denies: Dyspnea, Cough GI: denies: Nausea, Vomiting, Diarrhea Skin: denies: Rash, Lesions Musculoskeletal: reports: Neck pain (some aching left side of neck.). denies: B ack pain Neurologic: reports: Headache. 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 : None HEENT: Chronic vision loss Psych: None Musculoskeletal: None Derm: None - Past Surgical History Past Surgical History: No /RAW HIDE TRIMMER: Dilation and currettage, Tubal ligation - Present Medications Home Medications: Ambulatory Orders Medication Instructions Recorded Confirmed Acetaminophen [Tylenol] 650 mg PO Q6H PRN #90 tablet 09/01/20 Ibuprofen [Motrin] 600 mg PO Q6H PRN #60 tab 09/01/20 oxyCODONE [Roxicodone] 2.5 - 5 mg PO Q4H PRN #6 tablet 09/01/20 HYDROcod/ACETAM 5/325 [Blanco 5/325] 1 ea PO Q6H PRN #15 tablet 09/15/21 Losartan [Cozaar] 50 mg PO DAILY 30 Days #30 tablet 09/15/21 Naproxen 250 mg PO BID 7 Days #20 tablet 09/15/21 Ondansetron Odt [Zofran] 4 mg TL Q6H PRN #10 tablet 09/15/21 - Allergies Allergies/Adverse Reactions: Allergies Allergy/AdvReac Type Severity Reaction Status Date / Time No Known Drug Allergies Allergy Verified 08/03/20 12:14 - Social History Does the pt smoke?: Yes Smoking Status: Current every day smoker Does the pt drink ETOH?: Yes Does the pt have substance abuse?: Yes - Immunizations Immunizations are current?: Yes - POLST Patient has POLST: No PD ED PE NORMAL - Vitals Vital signs reviewed: Yes - General General: Alert and oriented X 3, Well developed/nourished, Other (appears uncomfortable. Some squinting from light. ) - HEENT HEENT: Atraumatic, PERRL, EOMI, Moist mucous membranes, Pharynx benign - Neck Neck: Supple, no meningeal sign, No adenopathy, No bruit - Cardiac Cardiac: RRR, No murmur - Respiratory Respiratory: Clear bilaterally - Abdomen Abdomen: Soft, Non tender - Back Back: No CVA TTP - Derm Derm: Normal color, Warm and dry, No rash - Extremities Extremities: Normal ROM s pain, No edema, No calf tenderness / cord - Neuro Neuro: Alert and oriented X 3, director loss prevention 2-12 intact, No motor deficit, No sensory deficit, Normal speech Eye Opening: Spontaneous Motor: Obeys Commands Verbal: Oriented GCS Score: 15 Results - Vitals Vitals: Vital Signs - 24 hr 09/15/21 09/15/21 09/15/21 10:42 12:06 13:53 Temperature 36.2 C L Heart Rate 68 55 L 55 L Respiratory 18 14 14 Rate Blood Pressure 153/92 H 145/92 H 156/109 H O2 Saturation 99 99 99 Oxygen O2 Source Room air - EKG (time done) 12:41 Rate: Rate (enter#) (55) Rhythm: Sinus bradycardia [place]: Normal Intervals: Normal [place] QRS: Low voltage Ischemia: Normal ST segments. No: ST elevation c/w ischemia, ST depression Compare to prior EKG: Old EKG unavailable - Labs Labs: Laboratory Tests 09/15/21 09/15/21 09/15/21 12:47 12:47 12:47 WBC 6.6 RBC 5.24 Hgb 14.9 Hct 45.0 MCV 85.9 MCH 28.4 MCHC 33.1 RDW 16.2 H Plt Count 282 MPV 9.4 Neut # (Auto) Not Reportable Lymph # (Auto) Not Reportable [place] # (Auto) Not Reportable Eos # (Auto) Not Reportable Baso # (Auto) Not Reportable Absolute Nucleated RBC Not Reportable Total Counted 100 Band Neuts % (Manual) 0 Reactive Lymphs % (Man) 23 Abnorm Lymph % (Manual) 0 Nucleated RBC % Not Reportable Neutrophils # (Manual) 1.7 Lymphocytes # (Manual) 4.4 H Monocytes # (Manual) 0.4 Eosinophils # (Manual) 0.1 Basophils # (Manual) 0.0 Differential Comment MANUAL DIFFERENTIAL Manual Slide Review Indicated Sodium 140 Potassium 3.9 Chloride 104 Carbon Dioxide 25 Anion Gap 11.0 BUN 13 Creatinine 0.7 Estimated GFR (MDRD) 108 Glucose 84 Calcium 9.7 Magnesium 1.9 Total Bilirubin 0.3 AST 20 ALT 19 Alkaline Phosphatase 63 Troponin I High Sens 5.3 Total Protein 7.9 Albumin 4.4 Globulin 3.5 Albumin/Globulin Ratio 1.3 Lipase 32 - Rads (name of study) head CT Radiology: Prelim report reviewed, See rad report chest xray Radiology: Prelim report reviewed (no acute cardiopulmonary abnormality.), See rad report PD MEDICAL DECISION MAKING - ED course Complexity details: re-evaluated patient (moderately well improved with TOradol. 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 Can give xript for meds for short term. ), considered differential (headache consistent for couple weeks. Some episodic prior. COnsider migraine, chronic daily headache, sinus headache, among others. BP noted elevated for 2 days but does not have recent baseline, so might be reactive to the pain. Not really elevated enough to think BP causing headache. ), d/w patient ED course: Pain medication opioid script for acute pain process and intended to be short term. Cautioned on side effects. Departure - Departure Disposition: 01 Home, Self Care Clinical Impression: Elevated blood pressure reading Headache Qualifiers: Headache type: unspecified Headache chronicity pattern: acute headache Int ractability: not intractable Qualified Code(s): R51.9 - Headache, unspecified Fatigue Qualifiers: Fatigue type: unspecified Qualified Code(s): R53.83 - Other fatigue Condition: Stable Record reviewed to determine appropriate education?: Yes Instructions: ED Cephalgia Unspecified, ED Hypertension Poss Follow-Up: [facility] [place] [Provider Group] Prescriptions: Losartan [Cozaar] 50 mg PO DAILY 30 Days #30 tablet Naproxen 250 mg PO BID 7 Days #20 tablet HYDROcod/ACETAM 5/325 [Blanco 5/325] 1 ea PO Q6H PRN #15 tablet PRN Reason: Pain Ondansetron Odt [Zofran] 4 mg TL Q6H PRN #10 tablet PRN Reason: Nausea / Vomiting Comments: Your head scan is normal without any obvious structural abnormalities (tumors, bleeding, swelling). I presume your headache currently and chronically is more of a functional headache such as chronic daily headache or sinus or migraine. The current symptoms of headache, fatigue and nausea may relate more likely to a viral illness. As such I would anticipate them improving over the next few days. There is no signs on testing of heart attack/heart failure, diabetes, kidney failure, electrolyte problems. I would suggest using ondansetron if needed for nausea, naproxen anti- inflammatory 2-3 times daily over the next week with food. To that add Tylenol or hydrocodone if needed for pains and headache. Regarding your blood pressure elevation, I would suggest you take your blood pressure daily over the next week or 2 and if its more consistently elevated, then to start the blood pressure medicine losartan 50 mg daily. If its not particularly elevated, then you could just continue without it until follow-up with your primary care. Follow-up with your primary care. Try to get an appointment with the [facility] primary care you had seen. It likely will be several weeks for new appointment and so I provided the prescription noted above to start treatment in the interim if needed. Recheck if not improving well over the next few days. I transmitted your prescription to [facility] pharmacy in [place]. I am prescribing a short course of narcotic pain medication for you. These are potentially dangerous and addictive medications that should be used carefully. These medications may constipate you. Take an [id number] stool softener such as docusate twice daily with plenty of water while taking these medications. If you go 24 hours without a bowel movement, take [id number] MiraLAX, per package instructions. Do not drink or drive while taking these medications. If you received narcotic or sedating medications while in the emergency department do not drive for 24 hours. Store this medication in a safe, secure place and out of reach of children. It is a violation of federal law to give or sell this medication to another person or to use in a manner other than prescribed. The ED will not refill narcotic prescriptions, including prescriptions lost or stolen. You can dispose of unwanted medications at the [facility]'s office or at several pharmacies such as [facility]. Discharge Date/Time: 09/15/21 14:03
[2021-09-15] MEDS ORDERED: KETOROLAC 15 MG/ML VIAL IVP STA (12:28)
[2021-09-15] MEDS ORDERED: ACETAMINOPHEN 325 MG TABLET PO STA (12:29)
[2021-09-15 12:55] LABS: BASOPHILS % (AUTO) 0.5 %; EOSINOPHILS % (AUTO) 3.3 %; HGB - HEMOGLOBIN 14.9 g/dL (12.0-16.0); MEAN CORPUSCULAR HEMOGLOBIN 28.4 pg (27.0-31.0); MEAN CORPUSCULAR HGB CONC 33.1 g/dL (32.0-36.0); MEAN CORPUSCULAR VOLUME 85.9 fL (81.0-99.0); MEAN PLATELET VOLUME 9.4 fL (7.9-10.8); NEUTROPHILS % (AUTO) 28.2 %; PLT - PLATELET COUNT 282 10^3/uL (130-450); RED BLOOD COUNT 5.24 10^6/uL (4.20-5.40); RED CELL DISTRIBUTION WIDTH 16.2 % (12.0-15.0); WHITE BLOOD COUNT 6.6 x10^3/uL (4.8-10.8)
[2021-09-15 13:07] LABS: SLIDE REVIEW? Indicated
[2021-09-15 13:08] LABS: ABNORMAL LYMPHS % (MANUAL) 0 %; BAND NEUTROPHILS % (MANUAL) 0 %
[2021-09-15 13:09] LABS: ALBUMIN 4.4 g/dL (3.2-5.5); ALBUMIN/GLOBULIN RATIO 1.3 (1.0-2.2); BILIRUBIN,TOTAL 0.3 mg/dL (0.2-1.0); CALCIUM 9.7 mg/dL (8.5-10.3); CREATININE 0.7 mg/dL (0.4-1.0); MAGNESIUM 1.9 mg/dL (1.7-2.8); POTASSIUM 3.9 mmol/L (3.5-5.0); TOTAL PROTEIN 7.9 g/dL (6.7-8.2)
--- NOTE | 2021-09-15 13:17 | CT Report ---
PROCEDURE: HEAD WO INDICATIONS: headache and lightheaded TECHNIQUE: Noncontrast 4.5 mm thick angled axial sections acquired from the foramen magnum to the vertex. For r adiation dose reduction, the following was used: automated exposure control, adjustment of mA and/or kV according to patient size. COMPARISON: None. FINDINGS: Image quality: Excellent. CSF spaces: Basal cisterns are patent. No extra-axial fluid collections. Ventricles are normal in size and shape. Brain: No midline shift. No intracranial masses or hemorrhage. Lopez-white matter interface is norm al. Skull and face: Calvarium and visualized facial bones are intact, without suspicious lesions. Sinuses: Visualized sinuses and mastoids are clear. IMPRESSION: Noncontrast head CT within normal limits. Reviewed by: Jsaon Brock MD on 09/15/2021 12:16 PM AKMICK Approved by: Jason Brock MD on 09/15/2021 12:16 PM AKMICK Station ID: [id number]
--- NOTE | 2021-09-15 13:20 | XRAY Report ---
PROCEDURE: Chest 1 View X-Ray INDICATIONS: lightheaded TECHNIQUE: One view of the chest was acquired. COMPARISON: None FINDINGS: Surgical changes and devices: None. Lungs and pleura: No pleural effusions or pneumothorax. Lungs are clear. Mediastinum: Mediastinal contours appear normal. Heart size is normal. Bones and chest wall: No suspicious bony lesions. Overlying soft tissues appear unremarkable. IMPRESSION: No acute cardiopulmonary pathology. Reviewed by: Srinivasa Edward MD on 09/15/2021 1:19 PM PDT Approved by: Srinivasa Edward MD on 09/15/2021 1:19 PM PDT Station ID: [id number]
[2021-09-15 13:28] LABS: EOSINOPHILS # (MANUAL) 0.1 10^3/uL (0-0.7); LYMPHOCYTES # (MANUAL) 4.4 10^3/uL (1.5-3.5); LYMPHOCYTES % (MANUAL) 43 %; MONOCYTES # (MANUAL) 0.4 10^3/uL (0.0-1.0); NEUTROPHILS # (MANUAL) 1.7 10^3/uL (1.5-6.6); REACTIVE LYMPHS % (MANUAL) 23 %
[2021-09-15 13:29] LABS: DIFFERENTIAL COMMENT MANUAL DIFFERENTIAL
[2021-09-15] MEDS ORDERED: DEXAMETHASONE 10 MG/ML VIAL IVP STA (13:39)
[2021-09-15 13:54] VITALS: BP 156/109
== END 2021-09-15 14:03 | disposition home or self-care (01) ==
LOC: ED 10:40
DX: R51.9 Headache, unspecified (principal); R03.0 Elevated blood-pressure reading, without diagnosis of hypertension; F17.200 Nicotine dependence, unspecified, uncomplicated
CPT/HCPCS: 36415; 70450; 71045; 80053; 83690; 83735; 84484; 85025; 93005; 96374; 96375; 99284; A9270

== ENCOUNTER 2023-08-31 10:20 | Emergency (ER) | payer MEDICAID, OTHER ==
[2023-08-31 10:45] LABS: BILIRUBIN,URINE SMALL (NEGATIVE); GLUCOSE, URINE (UA) NEGATIVE (NEGATIVE); KETONES,URINE (UA) NEGATIVE (NEGATIVE); LEUKOCYTE ESTERASE, URINE NEGATIVE (NEGATIVE); NITRITE,URINE NEGATIVE (NEGATIVE); OCCULT BLOOD,URINE NEGATIVE (NEGATIVE); PH,URINE 5.5 PH (5.0-7.5); PROTEIN,URINE NEGATIVE (NEGATIVE); UROBILINOGEN,URINE 0.2 (NORMAL) E.U./dL (NORMAL)
[2023-08-31 10:47] LABS: CLARITY,URINE CLEAR (CLEAR); HCG UR QUAL NEGATIVE
[2023-08-31] MEDS: ONDANSETRON 4 MG/2 ML VIAL IVP STA (11:03)
[2023-08-31] MEDS: KETOROLAC 15 MG/ML VIAL IVP STA (11:03)
[2023-08-31 11:05] LABS: BASOPHILS % (AUTO) 0.5 %; EOSINOPHILS # (AUTO) 0.2 10^3/uL (0.0-0.7); EOSINOPHILS % (AUTO) 2.9 %; HCT - HEMATOCRIT 40.6 % (37.0-47.0); HGB - HEMOGLOBIN 13.3 g/dL (12.0-16.0); LYMPHOCYTES # (AUTO) 3.5 10^3/uL (1.5-3.5); LYMPHOCYTES % (AUTO) 59.7 %; MEAN CORPUSCULAR HEMOGLOBIN 28.2 pg (27.0-31.0); MEAN CORPUSCULAR HGB CONC 32.8 g/dL (32.0-36.0); MEAN CORPUSCULAR VOLUME 86.2 fL (81.0-99.0); MEAN PLATELET VOLUME 9.7 fL (7.9-10.8); MONOCYTES # (AUTO) 0.5 10^3/uL (0.0-1.0); MONOCYTES % (AUTO) 9.2 %; NEUTROPHILS # (AUTO) 1.6 10^3/uL (1.5-6.6); NEUTROPHILS % (AUTO) 27.5 %; PLT - PLATELET COUNT 288 10^3/uL (130-450); RED BLOOD COUNT 4.71 10^6/uL (4.20-5.40); RED CELL DISTRIBUTION WIDTH 15.3 % (12.0-15.0); WHITE BLOOD COUNT 5.9 x10^3/uL (4.8-10.8)
[2023-08-31 11:18] LABS: ALBUMIN 4.2 g/dL (3.2-5.5); ALBUMIN/GLOBULIN RATIO 1.4 (1.0-2.2); BILIRUBIN,TOTAL 0.2 mg/dL (0.2-1.0); CALCIUM 9.9 mg/dL (8.5-10.3); CREATININE 0.6 mg/dL (0.6-1.3); POTASSIUM 3.9 mmol/L (3.5-4.5); TOTAL PROTEIN 7.2 g/dL (6.4-8.9)
[2023-08-31] MEDS ORDERED: iohexoL-300 100 ML VIAL ONE (11:32)
--- NOTE | 2023-08-31 12:17 | CT Report ---
PROCEDURE: Abdomen/Pelvis W INDICATIONS: L flank pain CONTRAST: 100ml omni TECHNIQUE: After the administration of intravenous contrast, a CT scan of the abdomen and pelvis was performed. Images were recorded and evaluated at appropriate window settings. Reformats: coronal and sagittal. F or radiation dose reduction, the following was used: automated exposure control, adjustment of mA and /or kV according to patient size. COMPARISON: 04/10/2020 FINDINGS: Image quality: Diagnostic. Lower chest: Cardiomegaly. Liver: Subcentimeter hypoattenuating liver lesions, too small to characterize by CT. Gallbladder and biliary tree: Gallbladder sludge versus small stones. No wall thickening. No biliary dilation. Spleen: Atrophic. Pancreas: No pancreatic ductal dilation. Adrenals: No adrenal nodule. Kidneys and ureters: No hydronephrosis. No renal cystic lesion which requires follow up. No solid mas s. Stomach, bowel and peritoneum: No bowel distension. No pathologic free fluid. Diverticulosis without evidence of diverticulitis. Normal appendix. Lymph nodes: No central or retroperitoneal adenopathy. Vessels: No infrarenal aortic aneurysm. Moderate atherosclerotic disease. PELVIS Reproductive organs: Unremarkable. Bladder: No abnormal wall thickening, accounting for underdistention. Pelvic lymph nodes: No pelvic adenopathy by size criteria. Bones: No aggressive osseous abnormality. Degenerative changes at L5-S1. Right greater than left sacr oiliitis. Degenerative changes of the pubic symphysis. Other: Small umbilical hernia containing fat. IMPRESSION: No acute abnormality to explain the patient's left flank pain. No nephrolithiasis. Colonic diverticulosis without evidence of diverticulitis. 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 Sacroiliitis, which has associations with other medical conditions such as inflammatory bowel disease . Reviewed by: Jag Casanova MD on 08/31/2023 12:15 PM PDT Approved by: Jag Casanova MD on 08/31/2023 12:15 PM PDT Station ID: [id number]
--- NOTE | 2023-08-31 12:42 | ED Physician Documentation ---
PD HPI BACK PAIN - Stated complaint Stated Complaint: BACK LT SIDE PX - Chief complaint Chief Complaint: Back Pain - History obtained from History obtained from: Patient - Additional information Additional information: Patient is a 53-year-old female without any significant past medical history presenting for evaluation of left-sided back pain that has been present for 1 week. Patient has been using Goody powder which does help with the pain but it has not improved so she wanted to come for evaluation. 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 No fever. Denies dysuria or hematuria. No nausea or vomiting or diarrhea.No bowel or bladder incontinence or numbness or saddle anesthesia. 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: Dilation and currettage, Tubal ligation - Present Medications Home Medications: Ambulatory Orders Medication Instructions Recorded Confirmed Lidocaine Patch 5% [Lidoderm Patch] 1 patch TOP DAILY PRN #10 patch 08/31/23 - Allergies Allergies/Adverse Reactions: Allergies Allergy/AdvReac Type Severity Reaction Status Date / Time No Known Drug Allergies Allergy Verified 08/31/23 10:29 - Social History Does the pt smoke?: Yes Smoking Status: Current every day smoker Does the pt drink ETOH?: Yes Does the pt have substance abuse?: Yes Substance Use and Type: Marijuana - Immunizations Immunizations are current?: Yes - POLST Patient has POLST: No PD ED PE NORMAL - General General: Alert and oriented X 3, No acute distress, Well developed/nourished - HEENT HEENT: Atraumatic - Neck Neck: Supple, no meningeal sign - Cardiac Cardiac: RRR, Strong equal pulses - Respiratory Respiratory: No respiratory distress, Clear bilaterally - Abdomen Abdomen: Normal bowel sounds, Soft, Non distended, Other (L sided abdominal tenderness) - Back Back: No spinal TTP, Other (Left CVA tenderness) - Derm Derm: Warm and dry - Extremities Extremities: No calf tenderness / cord - Neuro Neuro: Alert and oriented X 3, No motor deficit, Normal speech Results - Vitals Vitals: Vital Signs - 24 hr 08/31/23 08/31/23 08/31/23 10:26 12:02 12:49 Temperature 35.7 C L Heart Rate 76 65 58 L Respiratory 20 20 15 Rate Blood Pressure 143/98 H 153/109 H 153/111 H O2 Saturation 100 100 99 Oxygen O2 Source Room air - Labs Labs: Laboratory Tests 08/31/23 08/31/23 08/31/23 10:34 10:34 11:00 WBC 5.9 RBC 4.71 Hgb 13.3 Hct 40.6 MCV 86.2 MCH 28.2 MCHC 32.8 RDW 15.3 H Plt Count 288 MPV 9.7 Neut # (Auto) 1.6 Lymph # (Auto) 3.5 [place] # (Auto) 0.5 Eos # (Auto) 0.2 Baso # (Auto) 0.0 Absolute Nucleated RBC 0.00 Nucleated RBC % 0.0 Sodium Potassium Chloride Carbon Dioxide Anion Gap BUN Creatinine Estimated GFR (MDRD) Glucose Calcium Total Bilirubin AST ALT Alkaline Phosphatase Total Protein Albumin Globulin Albumin/Globulin Ratio Lipase Urine Color DARK YELLOW Urine Clarity CLEAR Urine pH 5.5 Ur Specific [place] >=1.030 H Urine Protein NEGATIVE Urine Glucose (UA) NEGATIVE Urine Ketones NEGATIVE Urine Occult Blood NEGATIVE Urine Nitrite NEGATIVE Urine Bilirubin SMALL H Urine Urobilinogen 0.2 (NORMAL) Ur Leukocyte Esterase NEGATIVE Ur Microscopic Review NOT INDICATED Urine Culture Comments NOT INDICATED Urine HCG, Qual NEGATIVE 08/31/23 11:00 WBC RBC Hgb Hct MCV MCH MCHC RDW Plt Count MPV Neut # (Auto) Lymph # (Auto) [place] # (Auto) Eos # (Auto) Baso # (Auto) Absolute Nucleated RBC Nucleated RBC % Sodium 140 Potassium 3.9 Chloride 108 Carbon Dioxide 25 Anion Gap 7.0 BUN 16 Creatinine 0.6 Estimated GFR (MDRD) 128 Glucose 109 H Calcium 9.9 Total Bilirubin 0.2 AST 13 ALT 11 Alkaline Phosphatase 64 Total Protein 7.2 Albumin 4.2 Globulin 3.0 Albumin/Globulin Ratio 1.4 Lipase 33 Urine Color Urine Clarity Urine pH Ur Specific [place] Urine Protein Urine Glucose (UA) Urine Ketones Urine Occult Blood Urine Nitrite Urine Bilirubin Urine Urobilinogen Ur Leukocyte Esterase Ur Microscopic Review Urine Culture Comments Urine HCG, Qual PD Medical Decision Making - ED course Complexity details: reviewed results, re-evaluated patient, d/w patient ED course: Pt with L sided back pain for 1 week. No reported trauma. Mild abdominal tenderness also on exam. CBC, chemistries, UA reviewed. No red flag signs/symptoms in regards to back pain. CT scan ordered due to abdominal tenderness and with some incidental findings which I reviewed with pt. She feels better after toradol. Discussed trial of continued supportive care as well as limiting activities that may worsen musculoskeletal causes of pain. Pain understands needs for followup if pain persists and advised on return precautions. Departure - Departure Disposition: Home, Self Care Clinical Impression: Left-sided back pain Condition: Stable Instructions: ED Neck Back Pain General Prescriptions: Lidocaine Patch 5% [Lidoderm Patch] 1 patch TOP DAILY PRN #10 patch PRN Reason: pain Comments: Your testing today does not show signs of an an infection or problems with your kidney causing your pain. I would recommend a trial of lidocaine patches as well as anti-inflammatory such as acetaminophen or ibuprofen and avoiding any activities such as lifting, bending or twisting that could exacerbate your back pain. I would recommend follow-up with your primary care doctor. Please return to the ER with any worsening symptoms. I have sent a prescription for the lidocaine patches to [facility]. IMPRESSION: No acute abnormality to explain the patient's left flank pain. No nephrolithiasis. Colonic diverticulosis without evidence of diverticulitis. 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 Sacroiliitis, which has associations with other medical conditions such as inflammatory bowel disease. Discharge Date/Time: 08/31/23 12:52
[2023-08-31 12:54] VITALS: BP 153/111; O2SAT 99
[2023-08-31] MEDS: iohexoL-300 100 ML VIAL IVP ONE (16:28)
== END 2023-08-31 12:52 | disposition home or self-care (01) ==
LOC: ED 10:20
DX: M54.9 Dorsalgia, unspecified (principal); R10.9 Unspecified abdominal pain; K57.30 Diverticulosis of large intestine without perforation or abscess without bleeding; D73.0 Hyposplenism; M46.1 Sacroiliitis, not elsewhere classified; F17.200 Nicotine dependence, unspecified, uncomplicated
CPT/HCPCS: 36415; 74177; 80053; 81003; 81025; 83690; 85025; 96374; 99284; Q9967; 81001; 87086